=== PATIENT | male | born 1935 | race Caucasian/White ===

== ENCOUNTER 2016-09-30 08:36 | Inpatient (IN) | payer MEDICARE ==
[2016-09-30 09:54] LABS: Hematocrit 43 % (42-52); Hemoglobin 14.5 g/dl (14.0-18.0); Mean Corpuscular HGB Conc 34 g/dl (31-36); Mean Corpuscular Hemoglobin 32 pg (27-31); Mean Corpuscular Volume 94 fL (80-94); Mean Platelet Volume 8 um3 (7.4-10.4); Red Blood Count 4.55 10^6/ul (4.0-5.4); Red Cell Distribution Width 13 % (10.5-15)
[2016-09-30 10:07] LABS: Albumin 3.4 g/dL (3.2-5.2); BUN/Creatinine Ratio 9.8 (8-20); Calcium 8.9 mg/dL (8.6-10.3); EGFR African American 101.5 (>60); Globulin 3.9 g/dL (2-4); Potassium 4.2 mmol/L (3.5-5.0); Total Bilirubin 0.8 mg/dL (0.2-1.0); Total Protein 7.3 g/dL (6.4-8.9)
[2016-09-30 10:11] LABS: Troponin I 0.07 ng/mL (<0.04)
--- NOTE | 2016-09-30 10:11 | RAD ---
HISTORY: Cough COMPARISONS: September 09, 2016 VIEWS: 2: Frontal dual-energy and lateral views of the chest. FINDINGS: CARDIOMEDIASTINAL SILHOUETTE: The cardiomediastinal silhouette is normal. LOVE: The love are normal. PLEURA: There is moderate right pleural effusion. LUNG PARENCHYMA: There is patchy alveolar opacification of the right lung base. 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 ABDOMEN: The upper abdomen is clear. There is no subphrenic gas. BONES AND SOFT TISSUES: No bone or soft tissue abnormalities are noted. OTHER: None. IMPRESSION: INTERVAL DEVELOPMENT OF MODERATE-SIZED RIGHT PLEURAL EFFUSION WITH ASSOCIATED RIGHT BASILAR ATELECTASIS VERSUS CONSOLIDATION
[2016-09-30 10:32] LABS: Urine Bilirubin Negative (Negative); Urine Glucose Negative (Negative); Urine Nitrite Negative (Negative)
[2016-09-30] MEDS ORDERED: Albuterol 2.5 MG/3 ML NEB.SOL* (0.083%) INH ONE (11:13)
[2016-09-30] MEDS ORDERED: methylPREDNISolone 125 MG* 2 ML VIAL IM ONE (11:13)
[2016-09-30] MEDS ORDERED: Azithromycin IV* 500 MG ADVAN VIAL IVPB ONE (11:13)
[2016-09-30] MEDS ORDERED: cefTRIAXone VIAL(*) 1,000 MG in NS 0.9% 50 ML* 50 ML IVPB ONE (11:13)
[2016-09-30] MEDS ORDERED: Aspirin TAB* 325 MG PO ONE (11:13)
[2016-09-30] MEDS ORDERED: Azithromycin IV(*) 500 MG in NS 0.9% 250 ML* 250 ML IVPB ONE (11:13)
[2016-09-30] MEDS ORDERED: NS 0.9% 250 ML* 250 ML ONE (11:39)
[2016-09-30] MEDS ORDERED: methylPREDNISolone 125 MG* 2 ML VIAL IV ONE (11:47)
[2016-09-30] MEDS ORDERED: Acetaminophen TAB* 325 MG PO PRN (12:16)
[2016-09-30] MEDS ORDERED: Ondansetron INJ* 2 MG/ML VIAL IV PRN (12:16)
[2016-09-30] MEDS ORDERED: Albuterol 2.5 MG/3 ML NEB.SOL* (0.083%) INH PRN (12:16)
[2016-09-30] MEDS ORDERED: NS 0.9% 1000 ML* 1,000 ML IV SCH (12:45)
[2016-09-30] MEDS ORDERED: Albuterol/Ipratropium NEB.SOL* Albuterol 2.5 MG/Ipratropium 0.5 MG 3 ML INH SCH (13:00)
[2016-09-30] MEDS ORDERED: Iohexol 350* (CONTRAST) 500 ML MDV IV ONE (13:32)
--- NOTE | 2016-09-30 13:37 | RAD ---
INDICATION: Right pleural effusion assess for possible thoracentesis. COMPARISON: Comparison is made with a prior chest x-ray study from September 30, 2016. TECHNIQUE: Multiple real-time images of the chest were obtained. FINDINGS: There is a small a moderate size right pleural effusion present. This appears to be a simple effusion. A spot was marked on the patient's posterior chest wall for a thoracentesis to be performed later today. IMPRESSION: SMALL A MODERATE SIZE RIGHT PLEURAL EFFUSION, SITE MARKED FOR THORACENTESIS.
--- NOTE | 2016-09-30 14:00 | ED ---
IPasquale,Aditi, scribed for Andrea Andersen MD on 09/30/16 at 1114 . Shortness of Breath - HPI Summary HPI Summary: This 81 y/o male presents to ED for persistent dyspnea that is worse today. Pt denies any BLE edema, recent weight gain, but does report productive cough with clear sputum and chest tightness that is located on right lateral right and worse with cough. No fever. Positive for chills and diaphoresis. Pt has had URI since 2015. Pt was seen by doctor at 09/09/2016 and was dx with PNA. Pt was sent home unspecified abx, but continues to have gradually worsening general weakness and SOB that is worsened by movement or exertion. Pt is currently living with son. PMHx includes thyroid dz, but does not include HTN , HLD. Per EMR, PMHx also includes bladder CA and basal cell CA on right eyelid s/p removal. - History of Current Complaint Chief Complaint: EDShortnessOfBreath Time Seen by Provider: 09/30/16 09:44 Hx Obtained From: Patient, Medical Records Onset/Duration: Lasting Weeks, Still Present Timing: Constant Current Severity: Moderate Dyspnea At: Exertion Aggrevating Factors: Movement Associated Signs & Symptoms: Cough (Productive) - clear sputum, Chest Pain w/ Cough, Chills, Diaphoresis - Allergy/Home Medications Allergies/Adverse Reactions: Allergies Allergy/AdvReac Type Severity Reaction Status Date / Time No Known Allergies Allergy Verified 09/30/16 08:41 Home Medications: Home Medications Albuterol 2.5MG/3ML (0.083%)* [Ventolin 2.5 MG/3 ML NEB.BEN*] 2.5 mg INH TID PRN 09/30/16 [History Confirmed 09/30/16] Levothyroxine TAB* [Synthroid TAB*] 50 mcg PO EVERY OTHER DAY 09/30/16 [History Confirmed 09/30/16] PMH/Surg Hx/FS Hx/Imm Hx Endocrine/Hematology History: Denies: Hx Diabetes Cardiovascular History: Denies: Hx Hypertension, Hx Pacemaker/ICD Respiratory History: Reports: Hx Chronic Obstructive Pulmonary Disease (COPD) - MILD Sensory History: Denies: Hx Hearing Aid Psychiatric History: Denies: Hx Panic Disorder - Cancer History Cancer Type, Location and Year: BLADDER CA 2007. BASAL CELL CA Hx Chemotherapy: No Hx Radiation Therapy: No - Surgical History Surgery Procedure, Year, and Place: APPENDIX. BLADDER CA 2008. CATARACTS. BASAL CELL CA REMOVED FROM RT EYE LID - Immunization History Date of Tetanus Vaccine: up to date Date of Influenza Vaccine: up to date Infectious Disease History: Yes Infectious Disease History: Denies: Traveled Outside the [place] in Last 30 Days - Family History Known Family History: Negative: Cardiac Disease, Hypertension, Diabetes - Social History Alcohol Use: Occasionally Substance Use Type: Reports: None Hx Tobacco Use: Yes Smoking Status (MU): Former Smoker Review of Systems Positive: Chills, Skin Diaphoresis. Negative: Fever Negative: Erythema Negative: Sore Throat Positive: Chest Pain - related to cough. located on right lateral chest Positive: Shortness Of Breath, Cough - productive with clear sputum Negative: Abdominal Pain, Vomiting, Nausea Negative: dysuria Negative: Myalgia, Edema Neurological: Other - negative dizziness Positive: Weakness - general weakness All Other Systems Reviewed And Are Negative: Yes Physical Exam - Summary Physical Exam Summary: Constitutional: Well-developed, Well-nourished, Alert. (-) Distressed Skin: Warm, Dry HENT: Normocephalic; Atraumatic Eyes: Conjunctiva normal Neck: Musculoskeletal ROM normal neck. (-) JVD, (-) Stridor, (-) Tracheal deviation Cardio: Rhythm regular, rate normal, Heart sounds normal; Intact distal pulses; The pedal pulses are 2+ and symmetric. Radial pulses are 2+ and symmetric. (-) Murmur Pulmonary/Chest wall: Effort normal. (-) Respiratory distress, (-) Wheezes, (+) Rales on right base Abd: Soft, (-) Tenderness, (-) Distension, (-) Guarding, (-) Rebound Musculoskeletal: (-) Edema Lymph: (-) Cervical adenopathy Neuro: Alert, Oriented x3 Psych: Mood and affect Normal Triage Information Reviewed: Yes Vital Signs On Initial Exam: Initial Vitals Temp Pulse Resp BP Pulse Ox 97.5 F 96 16 115/70 92 09/30/16 08:41 09/30/16 08:41 09/30/16 08:41 09/30/16 08:41 09/30/16 08:41 Vital Signs Reviewed: Yes Diagnostics - Vital Signs Vital Signs Temp Pulse Resp BP Pulse Ox 09/30/16 10:31 93 09/30/16 09:18 99.6 F 84 16 113/61 96 09/30/16 08:41 97.5 F 96 16 115/70 92 - Laboratory Lab Results: Lab Results 09/30/16 09/30/16 09/30/16 Range/Units 09:15 09:15 09:15 WBC 8.0 (3.5-10.8) 10^3/ul RBC 4.55 (4.0-5.4) 10^6/ul Hgb 14.5 (14.0-18.0) g/dl Hct 43 (42-52) % MCV 94 (80-94) fL MCH 32 H (27-31) pg MCHC 34 (31-36) g/dl RDW 13 (10.5-15) % Plt Count 258 (150-450) 10^3/ul MPV 8 (7.4-10.4) um3 Neut % (Auto) 72.8 (38-83) % Lymph % (Auto) 16.3 L (25-47) % Pope % (Auto) 9.1 H (1-9) % Eos % (Auto) 1.4 (0-6) % Baso % (Auto) 0.4 (0-2) % Absolute Neuts (auto) 5.8 (1.5-7.7) 10^3/ul Absolute Lymphs (auto) 1.3 (1.0-4.8) 10^3/ul Absolute Monos (auto) 0.7 (0-0.8) 10^3/ul Absolute Eos (auto) 0.1 (0-0.6) 10^3/ul Absolute Basos (auto) 0 (0-0.2) 10^3/ul Absolute Nucleated RBC 0 10^3/ul Nucleated RBC % 0 INR (Anticoag Therapy) 1.07 (0.89-1.11) APTT 33.3 (26.0-36.3) seconds Sodium 128 L (133-145) mmol/L Potassium 4.2 (3.5-5.0) mmol/L Chloride 97 L (101-111) mmol/L Carbon Dioxide 24 (22-32) mmol/L Anion Gap 7 (2-11) mmol/L BUN 9 (6-24) mg/dL Creatinine 0.92 (0.67-1.17) mg/dL Est GFR ( Amer) 101.5 (>60) Est GFR (Non-Af Amer) 79.0 (>60) BUN/Creatinine Ratio 9.8 (8-20) Glucose 100 (70-100) mg/dL Lactic Acid (0.5-2.0) mmol/L Calcium 8.9 (8.6-10.3) mg/dL Total Bilirubin 0.80 (0.2-1.0) mg/dL AST 17 (13-39) U/L ALT 16 (7-52) U/L Alkaline Phosphatase 59 (34-104) U/L Troponin I 0.07 H* (<0.04) ng/mL Total Protein 7.3 (6.4-8.9) g/dL Albumin 3.4 (3.2-5.2) g/dL Globulin 3.9 (2-4) g/dL Albumin/Globulin Ratio 0.9 L (1-3) Urine Color Urine Appearance Urine pH (5-9) Ur Specific Barbeau (1.010-1.030) Urine Protein (Negative) Urine Ketones (Negative) Urine Blood (Negative) Urine Nitrate (Negative) Urine Bilirubin (Negative) Urine Urobilinogen (Negative) Ur Leukocyte Esterase (Negative) Urine Glucose (Negative) 09/30/16 09/30/16 Range/Units 09:15 10:20 WBC (3.5-10.8) 10^3/ul RBC (4.0-5.4) 10^6/ul Hgb (14.0-18.0) g/dl Hct (42-52) % MCV (80-94) fL MCH (27-31) pg MCHC (31-36) g/dl RDW (10.5-15) % Plt Count (150-450) 10^3/ul MPV (7.4-10.4) um3 Neut % (Auto) (38-83) % Lymph % (Auto) (25-47) % Pope % (Auto) (1-9) % Eos % (Auto) (0-6) % Baso % (Auto) (0-2) % Absolute Neuts (auto) (1.5-7.7) 10^3/ul Absolute Lymphs (auto) (1.0-4.8) 10^3/ul Absolute Monos (auto) (0-0.8) 10^3/ul Absolute Eos (auto) (0-0.6) 10^3/ul Absolute Basos (auto) (0-0.2) 10^3/ul Absolute Nucleated RBC 10^3/ul Nucleated RBC % INR (Anticoag Therapy) (0.89-1.11) APTT (26.0-36.3) seconds Sodium (133-145) mmol/L Potassium (3.5-5.0) mmol/L Chloride (101-111) mmol/L Carbon Dioxide (22-32) mmol/L Anion Gap (2-11) mmol/L BUN (6-24) mg/dL Creatinine (0.67-1.17) mg/dL Est GFR ( Amer) (>60) Est GFR (Non-Af Amer) (>60) BUN/Creatinine Ratio (8-20) Glucose (70-100) mg/dL Lactic Acid 0.8 (0.5-2.0) mmol/L Calcium (8.6-10.3) mg/dL Total Bilirubin (0.2-1.0) mg/dL AST (13-39) U/L ALT (7-52) U/L Alkaline Phosphatase (34-104) U/L Troponin I (<0.04) ng/mL Total Protein (6.4-8.9) g/dL Albumin (3.2-5.2) g/dL Globulin (2-4) g/dL Albumin/Globulin Ratio (1-3) Urine Color Sylvia Urine Appearance Cloudy Urine pH 5.0 (5-9) Ur Specific Barbeau 1.021 (1.010-1.030) Urine Protein Negative (Negative) Urine Ketones Trace H (Negative) Urine Blood Negative (Negative) Urine Nitrate Negative (Negative) Urine Bilirubin Negative (Negative) Urine Urobilinogen Negative (Negative) Ur Leukocyte Esterase Negative (Negative) Urine Glucose Negative (Negative) Result Diagrams: 09/30/16 09:15 09/30/16 09:15 Lab Statement: Any lab studies that have been ordered have been reviewed, and results considered in the medical decision making process. - Radiology CXR Xray Interpretation: Positive (See Comments) - INTERVAL DEVELOPMENT OF MODERATE- SIZED RIGHT PLEURAL EFFUSION WITH ASSOCIATED RIGHT BASILAR ATELECTASIS VERSUS CONSOLIDATION Radiology Interpretation Completed By: Radiologist - EKG 0928 Cardiac Rate: NL - 86 bpm EKG Rhythm: Sinus Rhythm Course/Dx - Course Assessment/Plan: This 81 y/o male presents with persistent dyspnea that is worse today. SOB is exertional and worse with movement. Pt reports persistent and gradually worsening URI and dx of PNA on 09/09/2016 that is persistent in spite of unspecified abx treatment. Upon examination, pt is noted with right basilar rales. CXR indicates right sided pleural effusion with right basilar atelectasis vs consolidation. Trop of 0.07 is noted in blood work. Plan of care is discussed with Dr. English, who accepts the admission of the pt. - Diagnoses Provider Diagnoses: Community acquired pneumonia, Elevated troponin, Pleural effusion - Physician Notifications Discussed Care of Patient With: Dr. English (Hospitalist) at 1130 AM Time Discussed With Above Provider: 11:30 Instructed by Provider To: Admit As Inpatient Discharge - Discharge Plan Condition: Stable Disposition: ADMITTED TO [facility] Referrals: Bear Mckeon MD [Primary Care Provider] - The documentation as recorded by the Pasquale sneed Soohyun accurately reflects the service I personally performed and the decisions made by , Andrea Andersen MD.
[2016-09-30 14:14] LABS: Body Fluid WBC 2251 /mcL
[2016-09-30 14:17] LABS: Body Fluid Appearance Cloudy
[2016-09-30 14:19] LABS: Body Fluid Total Cells Counted 100
--- NOTE | 2016-09-30 14:55 | RAD ---
INDICATION: Right pleural effusion, cough. COMPARISON: Comparison is made with a prior chest x-ray study of the same date. TECHNIQUE: A CT angiogram of the chest was performed with intravenous following intravenous injection of 72 ml of Omnipaque 350 nonionic contrast. Contiguous axial sections were obtained from the lung apices through the lung bases. Images were reconstructed in the coronal and sagittal planes. FINDINGS: There is relatively homogeneous opacification of the pulmonary arteries. No intraluminal filling defect or pulmonary embolism is seen. The heart is within normal limits in size. No pericardial effusion is present. The thoracic aorta is normal in caliber and demonstrates homogeneous contrast opacification. No significant enlarged mediastinal or hilar lymph nodes are seen. There is moderate centrilobular emphysematous change which is most prominent in the upper lobes. There is a small right pleural effusion. No pneumothorax is seen. There is a small infiltrate present anterior at the right lung base and also in the right lower lobe. There is a cystic lesion present at the anterior right lung base likely within the right middle lobe measuring 2.1 x 3.2 x 2.0 cm in size. There is also a second nodular cystic lesion present within the inferior portion of the right major fissure measuring 0.8 cm in size. There is and anterior diaphragmatic hernia containing mesenteric fat and the hepatic flexure of the colon. No bowel wall thickening or dilatation is present. Note is made of hypodense lesions in the posterior segment of the right hepatic lobe and medial segment of the left hepatic lobe. These measure up to 2.8 cm in size and likely represent cysts. There is a [id number] dorsal scoliosis convex toward the right side. No significant focal osseous abnormality is seen. IMPRESSION: 1. NO EVIDENCE FOR PULMONARY EMBOLISM. 2. SMALL RIGHT PLEURAL EFFUSION. 3. SMALL RIGHT MIDDLE LOBE AND LOWER LOBE INFILTRATES. 4. HYPODENSE CYSTIC LESION PRESENT IN THE REGION OF THE RIGHT MIDDLE LOBE POSSIBLY REPRESENTING LOCULATED FLUID LESS LIKELY A PULMONARY ABSCESS. RECOMMEND FOLLOW-UP STUDIES TO DEMONSTRATE RESOLUTION 5. SECOND SMALLER LESION IN THE RIGHT MAJOR FISSURE LIKELY REPRESENTING LOCULATED FLUID. 5. RIGHT-SIDED ANTERIOR DIAPHRAGMATIC HERNIA NOTED.
[2016-09-30] MEDS: Mometasone/Formoter 200/5 MDI INH SCH ×2 (14:58→20:25)
--- NOTE | 2016-09-30 16:01 | ECHO ---
Patient: CESAR KOO [facility] Rec#: [id number] : 1935 Date: 09/30/2016 Age: 81y Height: 180.34 cm / 71.0 in Weight: 8.16 kg / 18.0 lbs Sex: M BSA: 0.76 Room#: -10 Admit Date#: 09/30/2016 Type: Inpatient Referring: Ziggy Oconnor NP Reading: Roland Watson MD Rapid Transit Operator: Gerard Akins RDCS Transthoracic Echocardiogram Indication: Elevated,Troponin BP: 116/65 HR: 81 Rhythm: NSR Findings History: Copd,murmur,pvd,abnormal ekg Technical Comments: The study quality is good. Completed 1400 Left Ventricle: The left ventricular chamber size is normal. Global left ventricular wall motion and contractility are within normal limits. There is normal left ventricular systolic function. The estimated ejection fraction is 55-60%. Abnormal left ventricular diastolic filling is observed, consistent with impaired relaxation. The absence of left atrial enlargement suggests this finding may not be of clinical significance. Left Atrium: The left atrial chamber size is normal. Right Ventricle: The right ventricular cavity size is normal. The right ventricular global systolic function is normal. Right Atrium: The right atrial cavity size is normal. Aortic Valve: The aortic valve is trileaflet. There is a trace of aortic regurgitation. There is no evidence of aortic stenosis. Mitral Valve: The mitral valve leaflets appear normal. There is mitral annular calcification. There is no evidence of mitral regurgitation. There is no evidence of mitral stenosis. Tricuspid Valve: The tricuspid valve appears normal in structure and function. There is no evidence of tricuspid valve regurgitation. No pulmonary hypertension is noted. Pulmonic Valve: The pulmonic valve structure is not well visualized. Pericardium: There is no pericardial effusion. A pericardial fat pad is visualized. No pleural effusion is present. Aorta: There is no dilatation of the ascending aorta. The aortic arch is not well visualized. There is no dilation of the aortic root. Pulmonary Artery: The main pulmonary artery is not well visualized. Venous: The inferior vena cava appears normal in size. There is a greater than 50% respiratory change in the inferior vena cava dimension. Conclusions There is normal left ventricular systolic function. The estimated ejection fraction is 55-60%. Abnormal left ventricular diastolic filling is observed, consistent with impaired relaxation. The absence of left atrial enlargement suggests this finding may not be of clinical significance. There is a trace of aortic regurgitation. Measurements Name Value Normal Range RVIDd (AP) 2D 2.2 cm (0.9 - 2.6) RVDdMajor (2D) 3.1 cm (2.2 - 4.4) RAd ISD 4CH 5 cm (3.4 - 4.9) RA (A4C)W 3.7 cm (2.9 - 4.6) IVSd (2D) 1.1 cm (0.6 - 1) LVPWd (2D) 0.9 cm (0.6 - 1) LVIDd (2D) 5.3 cm (3.6 - 5.4) LVIDs (2D) 3.5 cm - LV FS (2D) 34 % (25 - 45) Aortic Annulus 2.4 cm (1.4 - 2.6) Ao root diameter (2D) 3.4 cm (2.1 - 3.5) Ascending Ao 3.4 cm (2.1 - 3.4) Aortic arch 2.1 cm (1.8 - 3.4) LA dimension (AP) 2D 4 cm (2.3 - 3.8) LAd ISD 4CH 4.2 cm (2.9 - 5.3) LA ISD 4CH W 2.8 cm (2.5 - 4.5) Name Value Normal Range LA ESV SP 4CH (A/L) 16 ml - LA ESV SP 2CH (A/L) 27 ml - LA ESV BP (A/L) 20 ml - LA ESV BP (A/L) index 27.44 ml/m2 - LA ESV SP 4CH (MOD) 16 ml - LA ESV SP 2CH (MOD) 24 ml - Name Value Normal Range MV E-wave Vmax 0.4 m/sec - MV deceleration time 79 msec - MV A-wave Vmax 0.07 m/sec - MV E:A ratio 0.56 ratio - LV septal e' Vmax 0.8 m/sec - LV lateral e' Vmax 0.57 m/sec - Name Value Normal Range AV Vmax 1.1 m/sec - LVOT diameter 2.1 cm - Name Value Normal Range IVC diameter 1.3 cm - Name Value Normal Range PV Vmax 1.2 m/sec -
[2016-09-30 17:51] LABS: EGFR African American 114.4 (>60); EGFR Non-African American 88.9 (>60); Potassium 4.4 mmol/L (3.5-5.0)
[2016-09-30] MEDS: Heparin VIAL(*) 5000 UNITS/ML VIAL (FIVE THOUSAND) SUBCUT SCH ×2 (17:59→22:17)
--- NOTE | 2016-09-30 18:29 | HP ---
HISTORY AND PHYSICAL: DATE OF ADMISSION: 09/30/16 PRIMARY CARE PROVIDER: Dr. Mckeon. ATTENDING PHYSICIAN WHILE IN THE HOSPITAL: Dr. José English * (report dictated by Shea Oconnor NP). CONSULTING GORE STITCHER: Dr. Major. CHIEF COMPLAINT: 1. Shortness of breath. 2. Weakness. HISTORY OF PRESENTING ILLNESS: Mr. Pineda is an 81-year-old male patient who carries a history of BPH, basal cell cancer, bladder cancer, COPD, peripheral vascular disease, and hypothyroidism. He comes into the ER today stating that over the last 8 weeks, he has had progressive worsening shortness of breath. It started around 8 weeks ago with a cough, he had upper respiratory symptoms. He has had sore throat, runny nose, it was not getting any better by the 09 of September. So, he went into his primary. He obtained a chest x-ray. He was diagnosed with pneumonia. He was put on antibiotics and steroids. He states that it did not really help. He still was feeling more short of breath, having some dyspnea on exertion. He noticed that with minimal exertion now, he becomes very short of breath. He was concerned, so he came to the ER today. It was noted that he was mildly hypoxic in the upper 80s. He states that it hurts to cough now. He gets pain in his chest when he does cough. He denies any chest pain at rest or with exertion. He states that he does really feel short of breath and he has been weak. He denies any weight loss. Denies any hemoptysis. He states the sputum has been a clear type sputum and he has been having chills but no fevers. He is evaluated in the ER today. It was found that he was requiring oxygen. He was on 2 L to keep his sats in the upper 90s. In addition to this, he was found to have new pleural effusion, so the hospitalist service was asked to evaluate for admission. PAST MEDICAL HISTORY: Significant for: 1. BPH. 2. Basal cell cancer. 3. Bladder CA. 4. PVD. 5. COPD. 6. Hypothyroidism. PAST SURGICAL HISTORY: 1. He has had an appendectomy. 2. Bladder surgery. HOME MEDICATIONS: Include: 1. Albuterol 2.5 mg inhaled t.i.d. as needed. 2. Synthroid 50 mcg p.o. every other day. ALLERGIES TO MEDICATIONS: Include no known allergies. FAMILY HISTORY: Mother at the age of 96. Father had a history of brain tumor. SOCIAL HISTORY: He is a former smoker. He smoked about a pack and a half a day for about 40 years, quit in 1987. Occasionally drinks alcohol. He lives with his son. Surrogate decision maker is his son. REVIEW OF SYSTEMS: There is no documented fever. Denied any significant weight change. There was no double vision. There is no ear discharge. There was rhinorrhea but none now. He does admit to dyspnea on exertion, no orthopnea. There is no chest pain at rest or with exertion, only when he coughs. He denies any nausea, vomiting. There is no abdominal pain. No dysuria, no frequency. No loss of consciousness. No pruritus and no skin ulcerations. Review of 14 systems completed. All others negative. PHYSICAL EXAMINATION GENERAL: At this time, Mr. Pineda is an 81-year-old male patient. He does not appear to be in any acute distress. He is sitting in the ER stretcher. VITAL SIGNS: Reveal pulse 84, respirations 16, O2 sat 96%, and temperature 99.6. HEENT: Head: Atraumatic and normocephalic. Eyes: EOMs are intact. Sclerae anicteric and not pale. Throat: Oral mucosa appears to be moist. No oropharyngeal erythema. NECK: Supple. LUNGS: Clear to auscultation bilaterally except in the right base is diminished. HEART: Sounds S1, S2. Regular rate and rhythm. No murmurs, rubs, or gallops. ABDOMEN: Soft, flat, nontender. Bowel sounds present. EXTREMITIES: Pulses 2+ throughout. Able to move all 4 extremities with 5/5 strength. NEUROLOGIC: He is awake, he is alert, and he is oriented x3. He had no gross focal deficits. SKIN: Intact. DIAGNOSTIC STUDIES/LAB DATA: Labs today revealed WBC of 8.0, RBC of 4.55, hemoglobin of 14.5, hematocrit of 43, and platelet count of 258. INR was 1.07, PTT was 33.3. Sodium was 128, potassium 4.2, chloride 97, bicarb 24, BUN 9, creatinine 0.92, glucose of 100, lactate 0.8, calcium 8.9. Total bili 0.8, AST 17, ALT 16, alk phos 59. Troponin 0.07. BNP 13. Albumin is 3.4. He had a urine that showed trace ketones only. He did have a chest x-ray obtained today which, when I reviewed, I do appreciate a right-sided pleural effusion, moderately sized. He did have a chest x-ray on the , which did appear to show pneumonia. The pleural effusion was not there. He did have an EKG obtained today as well which shows normal sinus rhythm. No ST elevations or T-wave inversions were noted. It was reviewed to the previous EKG, it is similar. The rate was 86 and he had a normal axis. Old medical records were reviewed. ASSESSMENT AND PLAN: Mr. Pineda is an 81-year-old male patient coming in today with progressive worsening shortness of breath over the last 8 weeks. On evaluation today, he was found to have new pleural effusion. He will be admitted under inpatient status for: 1. Pleural effusion. At this point, the etiology is unclear. It could be reactive secondary to the recent pneumonia, but I think at this point, he will obviously need thoracentesis. We are going to send this off for LDH, pH. We will send it off for cultures, Gram stain, and cell count as well to help us delineate and also we will send off for cytology, because of the history of smoking, I am going to get an CTA of the chest after the thoracentesis and empirically, I am going to put him on Rocephin and azithromycin in case this is an infection and we will continue to monitor. 2. Chronic obstructive pulmonary disease. He is not wheezing currently, but I am going to put him on anabel Walker for the time being, antibiotics. No steroids at this point because of no wheezing. We will continue to follow. 3. History of BPH. Continue current medications. 4. History of hypothyroidism. Continue his Synthroid. 5. History of bladder cancer and basal cell cancer. Follow with his primary. 6. History of peripheral vascular disease. I will defer to the primary but he should be on an aspirin which the patient states he is not taking. 7. DVT prophylaxis. I will go ahead and put him on a heparin subcu. 8. Indeterminate troponin. It is probably demand ischemia. When the patient came in, it was noted that his O2 saturations were in the 80s and he was requiring O2 which certainly may cause demand picture. I will get an echo, cycle his troponin. Should they continue to elevate, we will get a Cardiology consult. 9. Hyponatremia. I will give him some normal saline at 175 an hour and we will repeat his BMP later today to make sure his sodium has stabilized and I will send off urine lytes and urine osmol and serum osmol as well. 10. Code status. Full code. 11. Fluid, electrolytes, and nutrition. He is n.p.o. pending the thoracentesis. TIME SPENT: On this admission was 70 minutes, greater than half the time was spent [id number] with the patient, obtaining my history of physical; the other half time was spent going over the plan of care with the patient and implementing plan of care. I did discuss the plan of care with my attending, Dr. English; he is in agreement. SHEA OCONNOR NP CC: Dr. Major; Dr. Mckeon* [id number]/CPS #: [id number] MTDD
[2016-09-30] MEDS: Albuterol/Ipratropium NEB.SOL* Albuterol 2.5 MG/Ipratropium 0.5 MG 3 ML INH SCH (20:15)
--- NOTE | 2016-09-30 23:00 | CONS ---
PULMONARY CONSULTATION REPORT DATE OF CONSULTATION: 09/30/16 CONSULTATION REQUESTED BY: Ziggy Oconnor NP REASON FOR CONSULTATION: Evaluation of pleural effusion, shortness of breath. HISTORY OF PRESENT ILLNESS: The patient is an 81-year-old male with history of COPD who was brought into the ED for evaluation of worsening shortness of breath. The patient has been feeling unwell since Thanks. The patient's symptoms started with cold/URI symptoms. The patient has been having worsening shortness of breath with productive cough since that time. The patient was evaluated by his primary care physician as an outpatient and was prescribed antibiotics and prednisone. The patient's breathing did not improve and he decided to come to the ED for further evaluation. The patient was noted to be in significant distress upon evaluation in the ED. The patient was also noted to be hypoxemic. The patient was placed on O2 supplementation. Further investigation revealed right- sided pleural effusion. Pulmonary consultation was requested for evaluation of pleural effusion. The patient was seen and examined by me this afternoon. I have reviewed chest x-ray personally which showed moderate size right pleural effusion. Given significant dyspnea, emergent thoracentesis was performed at bedside in the ED. Ultrasound localization was utilized. Please refer to separately dictated thoracentesis report for further details. The patient had 1 L of pleural fluid removed while in the ED. The patient subsequently underwent CT scan of the chest, which was personally reviewed by me. The patient was started on broad-spectrum antibiotics and is admitted for evaluation of pneumonia and parapneumonic effusion. The patient denied fevers; however, reported chills and rigors at home. The patient denied weight loss; however, reported decreased appetite. The patient had history of cataract removal in the past and wears glasses. The patient denied abdominal pain, chest pain, palpitations, syncope, lower extremity edema , hemoptysis, bloody stools, constipation, diarrhea, hematuria, headaches, weakness, depression, bleeding disorder. PAST MEDICAL HISTORY: 1. COPD. 2. Hypothyroidism. 3. Mitral valve disorder. 4. Aortic valve disorder. 5. Prostate hypertrophy. 6. Basal cell cancer removed from right eye in 2005. 7. Bladder cancer in 2008. 8. Peripheral artery disease. 9. Peripheral vascular disease. 10. Heart murmur as a child. PAST SURGICAL HISTORY: 1. Bladder surgery, 2 tumors resected in 2008. 2. Appendectomy. 3. Cataract removal. MEDICATIONS AT HOME: 1. Levothyroxine 50 mcg every other day. 2. Albuterol inhalation as needed through nebulizer. ALLERGIES: No known drug allergies. FAMILY HISTORY: One brother with Venus Gehrig's disease, father with brain tumor, mother with natural causes at the age of 96 years. SOCIAL HISTORY: He is , retired residential service technician. Former smoker quitting in 1997, smoked 1-1/2 pack per day for 40 years. Occasionally consumes alcohol and denies drug abuse. REVIEW OF SYSTEMS: All 14 systems reviewed and as per HPI. PHYSICAL EXAM: General: The patient in mild distress prior to thoracentesis. Vital Signs: Temperature 97.3, pulse 78 beats per minute, respiratory rate 14, O2 sat 91% to 94% on 2 L, blood pressure 113/58. HEENT: Pupils equal, reactive to light, mucous membranes moist. Neck: Supple, trachea midline. Respiratory: No diminished air entry bilaterally, scattered wheeze present, decreased breath sounds in the right lung, and no accessory muscle use. Cardiovascular: S1, S2 present, regular. No rubs or murmur present. Abdomen: Soft, bowel sounds present, nontender, nondistended. Extremities: Normal range of motion. No edema. Neurologic: No focal deficits. Skin: No rash or bruises. Musculoskeletal: Normal range of motion. No fractures. DIAGNOSTIC STUDIES/LAB DATA: Laboratory workup, WBC count 8.0, hemoglobin 14.5 , hematocrit 43, platelet count 258. INR 1.07. Sodium 129, potassium 4.4, chloride 99, bicarb 24, BUN 10, creatinine 0.83, lactic acid 0.8, troponin 0.07, BNP 13. Pleural fluid analysis showed neutrophilia. Other tests were pending at this time. CT of the chest was personally reviewed by me, no evidence of pneumothorax after the pleural fluid was drained. No evidence for pulmonary embolism. Small residual right pleural effusion and possibly loculated effusion in the right middle lobe area and in the right major fissure. No significant mediastinal or hilar adenopathy. Right-sided anterior diaphragmatic hernia is noted. IMPRESSION/RECOMMENDATIONS: 81-year-old male with history of significant chronic obstructive pulmonary disease, admitted with worsening shortness of breath, found to have right-sided pleural effusion. Right-sided pleural effusion likely parapneumonic effusion after recent pneumonia. The patient had thoracentesis performed by me earlier today with drainage of 1 L of dark turbid fluid. Fluid was sent to the lab for microbiological and hematological testing. Postprocedure CT scan revealed no pneumothorax; however, with small loculated pockets of fluid on the right side. The patient's white count is not elevated at this time. Cultures from the pleural fluid are negative to date. No organisms isolated. No evidence of empyema at this time. I agree with current antibiotic regimen. No evidence of suspicious nodules or masses in the lungs. Would recommend getting echocardiogram given elevated troponins and concern with cardiac event. Thank you for allowing me to participate in the care of your patient. Will follow up with you. [id number]/[facility] #: [id number] MATILDE
[2016-10-01] MEDS: Albuterol/Ipratropium NEB.SOL* Albuterol 2.5 MG/Ipratropium 0.5 MG 3 ML INH SCH ×7 (00:03→23:20)
--- NOTE | 2016-10-01 02:12 | PRO ---
PROCEDURE REPORT: DATE OF PROCEDURE: 09/30/16 PROCEDURE PERFORMED: Ultrasound-guided thoracentesis on the right side. PREPROCEDURAL DIAGNOSIS: Moderate right pleural effusion to evaluate for parapneumonic effusion. ANESTHESIA: Local anesthesia with 1% lidocaine. DESCRIPTION OF PROCEDURE: Informed consent was obtained from the patient prior to the procedure after all the risks and benefits were thoroughly explained. The patient was sitting up leaning forward during the procedure. A [employer] 8 [place] thoracentesis catheter was utilized. Appropriate time-out was agreed on by attending staff prior to the procedure. Portable ultrasound was used to localize moderate amounts of right pleural effusions, free flowing. Strict aseptic precautions were utilized. Local anesthesia was achieved with 1% lidocaine intradermally subcutaneously and down into the pleural space taking precautions. A [employer] 8[place] thoracentesis catheter was inserted under manual suction after stab incision was made in the back to facilitate placement of the catheter. Needle was removed and catheter was placed in the pleural space. 1 L of dark fluid was aspirated under manual suction. The patient tolerated the procedure well. A postprocedure chest x-ray was performed and was verified. Specimen was sent to the lab for testing. [id number]/[facility] #: [id number] MTDD
[2016-10-01 04:52] LABS: Hematocrit 38 % (42-52); Hemoglobin 12.8 g/dl (14.0-18.0); Mean Corpuscular HGB Conc 34 g/dl (31-36); Mean Corpuscular Hemoglobin 32 pg (27-31); Mean Corpuscular Volume 93 fL (80-94); Mean Platelet Volume 8 um3 (7.4-10.4); Red Blood Count 4.03 10^6/ul (4.0-5.4); Red Cell Distribution Width 13 % (10.5-15); White Blood Count 7.5 10^3/ul (3.5-10.8)
[2016-10-01 05:03] LABS: BUN/Creatinine Ratio 15.1 (8-20); Calcium 8.8 mg/dL (8.6-10.3); EGFR African American 109.8 (>60); EGFR Non-African American 85.4 (>60); Potassium 4.4 mmol/L (3.5-5.0)
[2016-10-01] MEDS: Heparin VIAL(*) 5000 UNITS/ML VIAL (FIVE THOUSAND) SUBCUT SCH ×3 (05:13→21:32)
[2016-10-01] MEDS: Mometasone/Formoter 200/5 MDI INH SCH ×2 (08:14→23:20)
[2016-10-01] MEDS: Azithromycin IV(*) 500 MG in NS 0.9% 250 ML* 250 ML IVPB SCH (11:13)
[2016-10-01] MEDS: cefTRIAXone VIAL(*) 1,000 MG in NS 0.9% 50 ML* 50 ML IVPB SCH (13:08)
[2016-10-01 13:51] LABS: Body Fluid Sodium 131 mmol/L
[2016-10-01 13:58] LABS: Total Protein, BF 4.7 g/dL
[2016-10-01] MEDS: Benzonatate CAP* 100 MG PO PRN (20:16)
--- NOTE | 2016-10-01 21:50 | PN ---
Subjective Date of Service: 10/01/16 Interval History: feels better - but still not at baseline. "not ready to go home today" denies new s/sx Family History: Unchanged from Admission Social History: Unchanged from Admission Past Medical History: Unchanged from Admission Objective Active Medications: . Acetaminophen (Tylenol Tab*) 650 mg PO Q4H PRN PRN Reason: FEVER/PAIN Albuterol (Ventolin 2.5 Mg/3 Ml Neb.Leila*) 2.5 mg INH Q2H PRN PRN Reason: SOB/WHEEZING Albuterol/Ipratropium (Duoneb Neb.Leila*) 1 neb INH [id number] AWAKE [facility] Last Admin: 10/01/16 20:20 Dose: 1 neb Benzonatate (Tessalon Cap*) 100 mg PO BID PRN PRN Reason: COUGH Last Admin: 10/01/16 20:16 Dose: 100 mg Heparin Sodium (Porcine) (Heparin Vial(*)) 5,000 units SUBCUT Q8HR [facility] Last Admin: 10/01/16 21:32 Dose: 5,000 units Ceftriaxone Sodium 1,000 mg/ (Sodium Chloride) 50 mls @ 200 mls/hr IVPB Q24H [facility] Last Admin: 10/01/16 13:08 Dose: 200 mls/hr Azithromycin 500 mg/ Sodium (Chloride) 250 mls @ 250 mls/hr IVPB Q24H [facility] Last Admin: 10/01/16 11:13 Dose: 250 mls/hr Sodium Chloride (Ns 0.9% 1000 Ml*) 1,000 mls @ 75 mls/hr IV PER RATE [facility] Last Admin: 09/30/16 19:39 Dose: 75 mls/hr Levothyroxine Sodium (Synthroid Tab*) 50 mcg PO EVERY OTHER DAY [facility] Mometasone Furoate/Formoterol Fumar (Dulera 200/5 Mdi*) 2 puff INH BID [facility] Last Admin: 10/01/16 08:14 Dose: Not Given Ondansetron HCl (Zofran Inj*) 4 mg IV Q6H PRN PRN Reason: NAUSEA Vital Signs 09/30/16 10/01/16 10/01/16 23:54 03:26 07:00 Temperature 97.7 F 97.3 F Pulse Rate 78 88 Respiratory 16 20 18 Rate Blood Pressure 115/64 128/63 (mmHg) O2 Sat by Pulse 94 95 Oximetry 10/01/16 10/01/16 10/01/16 07:34 08:00 11:03 Temperature 99.3 F 97.3 F Pulse Rate 75 77 Respiratory 16 20 Rate Blood Pressure 111/68 118/58 (mmHg) O2 Sat by Pulse 95 95 94 Oximetry Appearance: elderly, frail Ears/Nose/Mouth/Throat: Clear Oropharnyx Neck: Trachea Midline Respiratory: Symmetrical Chest Expansion and Respiratory Effort, - - R rhonchorous sounds posteriorly Cardiovascular: NL Sounds; No Murmurs; No JVD Abdominal: NL Sounds; No Tenderness; No Distention Lymphatic: No Cervical Adenopathy Extremities: No Edema Skin: No Rash or Ulcers Lines/Tubes/Other Access: Clean, Dry and Intact Peripheral IV Nutrition: Taking PO's Result Diagrams: 10/01/16 04:43 10/01/16 04:43 Microbiology and Other Data: Microbiology 09/30/16 13:13 Sterile Body Fluid Culture - Preliminary Pleural Fluid No Growth Day 1 Sterile Body Fluid Culture - Preliminary No Growth Day 1 09/30/16 13:13 Gram Stain - Final Body Fluid - Pleura Assess/Plan/Problems-Billing . Assessment: 81 yo man with Likely Right Parapneumonic effusion and associated hypoxia and shortness of breath -- caused by Rright multilobar pneumonia. Continuing antibiotics Awaiting final fluid studies --> likely exudative from infection. Exudative Effusion / Parapneumonic 09/30/16 09/30/16 13:13 13:13 Fluid WBC 2251 Fluid RBC 3694 Fluid Tot Cell Count 100 Fluid Neutrophils 54 Fluid Total Protein 4.7 - Patient Problems (1) Parapneumonic effusion Current Visit: Yes Status: Acute Priority: High Code(s): J18.9 - PNEUMONIA , UNSPECIFIED ORGANISM; J91.8 - PLEURAL EFFUSION IN OTHER CONDITIONS CLASSIFIED ELSEWHERE Comment: - secondary to ipsilateral pneumonia - s/p thorocentesis with good lung re-expansion - follow. (2) Pneumonia Current Visit: Yes Status: Acute Priority: High Code(s): J18.9 - PNEUMONIA , UNSPECIFIED ORGANISM Comment: - IV antibiotics - Oxygen - Nebs (3) Hypothyroid Current Visit: Yes Status: Acute Priority: High Code(s): E03.9 - HYPOTHYROIDISM, UNSPECIFIED Comment: - continue outpatient synthroid. (4) Peripheral vascular disease Current Visit: Yes Status: Acute Code(s): I73.9 - PERIPHERAL VASCULAR DISEASE, UNSPECIFIED Comment: ASA (5) Hyponatremia Current Visit: Yes Status: Acute Priority: Medium Code(s): E87.1 - HYPO- OSMOLALITY AND HYPONATREMIA Comment: - could be SIADH from pulmonary process -- follow Na.
[2016-10-01] MEDS: GuaiFENesin DM* 5 ML UDC PO PRN (23:32)
[2016-10-02] MEDS: Albuterol/Ipratropium NEB.SOL* Albuterol 2.5 MG/Ipratropium 0.5 MG 3 ML INH SCH ×6 (03:37→22:45)
[2016-10-02] MEDS: Heparin VIAL(*) 5000 UNITS/ML VIAL (FIVE THOUSAND) SUBCUT SCH ×3 (05:21→21:25)
[2016-10-02 06:00] LABS: Hematocrit 35 % (42-52); Hemoglobin 11.9 g/dl (14.0-18.0); Mean Corpuscular HGB Conc 34 g/dl (31-36); Mean Corpuscular Hemoglobin 31 pg (27-31); Mean Corpuscular Volume 93 fL (80-94); Mean Platelet Volume 7 um3 (7.4-10.4); Red Blood Count 3.79 10^6/ul (4.0-5.4); Red Cell Distribution Width 13 % (10.5-15); White Blood Count 8.5 10^3/ul (3.5-10.8)
[2016-10-02 06:16] LABS: BUN/Creatinine Ratio 17.6 (8-20); EGFR African American 111.3 (>60); EGFR Non-African American 86.5 (>60)
[2016-10-02] MEDS: Levothyroxine TAB* 50 MCG TAB PO SCH (07:14)
[2016-10-02] MEDS: Mometasone/Formoter 200/5 MDI INH SCH ×2 (07:23→22:44)
--- NOTE | 2016-10-02 07:32 | RAD ---
INDICATION: Shortness of breath. COMPARISON: Similar chest x-ray as well as CTA of the chest dated September 30, 2016 TECHNIQUE: PA and lateral views of the chest were obtained. FINDINGS: There is heterogeneous density overlying the right lung base is similar location as the previous chest x-ray but with improved aeration at the dependent and lateral most portions of the lung bases. Loops of bowel are seen overlying the medial lung base which correspond to either herniation of the right abdominal contents into the lower thorax or asymmetric anterior elevation of the diaphragm. The left lung is clear. Visualized bones are normal for the patient's age. There is no radiographic evidence of free air beneath the diaphragm IMPRESSION: IMPROVED AERATION OF THE RIGHT LUNG BASE RELATIVE TO THE PREVIOUS DAY CHEST X-RAY WITH APPEARANCE OF DIAPHRAGMATIC ELEVATION VERSUS HERNIATION DESCRIBED ABOVE.
[2016-10-02] MEDS: Benzonatate CAP* 100 MG PO PRN ×2 (10:24→21:19)
[2016-10-02] MEDS: GuaiFENesin DM* 5 ML UDC PO PRN ×2 (10:24→21:18)
[2016-10-02] MEDS: Azithromycin IV(*) 500 MG in NS 0.9% 250 ML* 250 ML IVPB SCH (12:01)
[2016-10-02] MEDS: cefTRIAXone VIAL(*) 1,000 MG in NS 0.9% 50 ML* 50 ML IVPB SCH (13:12)
--- NOTE | 2016-10-02 14:44 | PN ---
Subjective Date of Service: 10/02/16 Interval History: Pt states he is feeling poorly again. He states that his breathing was much better after the thoracentesis until yesterday afternoon when his breathing became difficult and he felt limited in what he was able to do comfortably. Additionally he states he now has a dry cough. Objective Active Medications: Acetaminophen (Tylenol Tab*) 650 mg PO Q4H PRN PRN Reason: FEVER/PAIN Albuterol (Ventolin 2.5 Mg/3 Ml Neb.Leila*) 2.5 mg INH Q2H PRN PRN Reason: SOB/WHEEZING Albuterol/Ipratropium (Duoneb Neb.Leila*) 1 neb INH [id number] AWAKE [facility] Last Admin: 10/02/16 11:43 Dose: 1 neb Benzonatate (Tessalon Cap*) 100 mg PO BID PRN PRN Reason: COUGH Last Admin: 10/02/16 10:24 Dose: 100 mg Guaifenesin/Dextromethorphan (Robitussin Dm*) 5 ml PO Q4H PRN PRN Reason: COUGH Last Admin: 10/02/16 10:24 Dose: 5 ml Heparin Sodium (Porcine) (Heparin Vial(*)) 5,000 units SUBCUT Q8HR [facility] Last Admin: 10/02/16 13:12 Dose: 5,000 units Ceftriaxone Sodium 1,000 mg/ (Sodium Chloride) 50 mls @ 200 mls/hr IVPB Q24H [facility] Last Admin: 10/02/16 13:12 Dose: 200 mls/hr Azithromycin 500 mg/ Sodium (Chloride) 250 mls @ 250 mls/hr IVPB Q24H [facility] Last Admin: 10/02/16 12:01 Dose: 250 mls/hr Sodium Chloride (Ns 0.9% 1000 Ml*) 1,000 mls @ 75 mls/hr IV PER RATE [facility] Last Admin: 09/30/16 19:39 Dose: 75 mls/hr Levothyroxine Sodium (Synthroid Tab*) 50 mcg PO EVERY OTHER DAY@0600 [facility] Last Admin: 10/02/16 07:14 Dose: 50 mcg Mometasone Furoate/Formoterol Fumar (Dulera 200/5 Mdi*) 2 puff INH BID [facility] Last Admin: 10/02/16 07:23 Dose: 2 puff Ondansetron HCl (Zofran Inj*) 4 mg IV Q6H PRN PRN Reason: NAUSEA Vital Signs 10/01/16 10/01/16 10/01/16 15:13 15:36 16:20 Temperature 97.3 F 98.1 F Pulse Rate 96 96 84 Respiratory 20 16 14 Rate Blood Pressure 117/57 105/51 (mmHg) O2 Sat by Pulse 94 93 94 Oximetry 10/01/16 10/01/16 10/01/16 19:51 19:58 20:00 Temperature 97.5 F Pulse Rate 92 86 Respiratory 16 16 20 Rate Blood Pressure 113/61 (mmHg) O2 Sat by Pulse 92 95 93 Oximetry 10/01/16 10/01/16 10/01/16 23:04 23:10 23:21 Temperature Pulse Rate 85 86 87 Respiratory 20 20 20 Rate Blood Pressure 120/57 (mmHg) O2 Sat by Pulse 94 93 97 Oximetry 10/02/16 10/02/16 10/02/16 00:00 00:34 03:37 Temperature 97.9 F 98.5 F Pulse Rate 98 93 Respiratory 20 20 Rate Blood Pressure 115/47 127/74 (mmHg) O2 Sat by Pulse 95 93 93 Oximetry 10/02/16 10/02/16 10/02/16 07:26 08:00 08:03 Temperature 97.8 F Pulse Rate 96 99 Respiratory 16 18 Rate Blood Pressure 109/54 (mmHg) O2 Sat by Pulse 94 92 Oximetry 10/02/16 10/02/16 11:24 11:44 Temperature 97.6 F Pulse Rate 97 91 Respiratory 22 16 Rate Blood Pressure 122/81 (mmHg) O2 Sat by Pulse 95 98 Oximetry Oxygen Devices in Use Now: Nasal Cannula - 3L-98% Appearance: Elderly male sitting on the edge of the bed, NAD Eyes: No Scleral Icterus Ears/Nose/Mouth/Throat: Mucous Membranes Moist Respiratory: Symmetrical Chest Expansion and Respiratory Effort, Clear to Auscultation - slightly diminished breath sounds at the R base Cardiovascular: NL Sounds; No Murmurs; No JVD, RRR Extremities: No Clubbing, Cyanosis Skin: No Rash or Ulcers, No Nodules or Sclerosis Neurological: Alert and Oriented x 3 Result Diagrams: 10/02/16 05:42 10/02/16 05:42 Additional Lab and Data: Lab Results 09/30/16 09/30/16 09/30/16 Range/Units 09:15 09:15 09:15 WBC 8.0 (3.5-10.8) 10^3/ul RBC 4.55 (4.0-5.4) 10^6/ul Hgb 14.5 (14.0-18.0) g/dl Hct 43 (42-52) % MCV 94 (80-94) fL MCH 32 H (27-31) pg MCHC 34 (31-36) g/dl RDW 13 (10.5-15) % Plt Count 258 (150-450) 10^3/ul MPV 8 (7.4-10.4) um3 Neut % (Auto) 72.8 (38-83) % Lymph % (Auto) 16.3 L (25-47) % Cross % (Auto) 9.1 H (1-9) % Eos % (Auto) 1.4 (0-6) % Baso % (Auto) 0.4 (0-2) % Absolute Neuts (auto) 5.8 (1.5-7.7) 10^3/ul Absolute Lymphs (auto) 1.3 (1.0-4.8) 10^3/ul Absolute Monos (auto) 0.7 (0-0.8) 10^3/ul Absolute Eos (auto) 0.1 (0-0.6) 10^3/ul Absolute Basos (auto) 0 (0-0.2) 10^3/ul Absolute Nucleated RBC 0 10^3/ul Nucleated RBC % 0 INR (Anticoag Therapy) 1.07 (0.89-1.11) APTT 33.3 (26.0-36.3) seconds Sodium 128 L (133-145) mmol/L Potassium 4.2 (3.5-5.0) mmol/L Chloride 97 L (101-111) mmol/L Carbon Dioxide 24 (22-32) mmol/L Anion Gap 7 (2-11) mmol/L BUN 9 (6-24) mg/dL Creatinine 0.92 (0.67-1.17) mg/dL Est GFR ( Amer) 101.5 (>60) Est GFR (Non-Af Amer) 79.0 (>60) BUN/Creatinine Ratio 9.8 (8-20) Glucose 100 (70-100) mg/dL Lactic Acid (0.5-2.0) mmol/L Calcium 8.9 (8.6-10.3) mg/dL Total Bilirubin 0.80 (0.2-1.0) mg/dL AST 17 (13-39) U/L ALT 16 (7-52) U/L Alkaline Phosphatase 59 (34-104) U/L Troponin I 0.07 H* (<0.04) ng/mL Total Protein 7.3 (6.4-8.9) g/dL Albumin 3.4 (3.2-5.2) g/dL Globulin 3.9 (2-4) g/dL Albumin/Globulin Ratio 0.9 L (1-3) Urine Color Urine Appearance Urine pH (5-9) Ur Specific [place] (1.010-1.030) Urine Protein (Negative) Urine Ketones (Negative) Urine Blood (Negative) Urine Nitrate (Negative) Urine Bilirubin (Negative) Urine Urobilinogen (Negative) Ur Leukocyte Esterase (Negative) Urine Glucose (Negative) 09/30/16 09/30/16 Range/Units 09:15 10:20 WBC (3.5-10.8) 10^3/ul RBC (4.0-5.4) 10^6/ul Hgb (14.0-18.0) g/dl Hct (42-52) % MCV (80-94) fL MCH (27-31) pg MCHC (31-36) g/dl RDW (10.5-15) % Plt Count (150-450) 10^3/ul MPV (7.4-10.4) um3 Neut % (Auto) (38-83) % Lymph % (Auto) (25-47) % Cross % (Auto) (1-9) % Eos % (Auto) (0-6) % Baso % (Auto) (0-2) % Absolute Neuts (auto) (1.5-7.7) 10^3/ul Absolute Lymphs (auto) (1.0-4.8) 10^3/ul Absolute Monos (auto) (0-0.8) 10^3/ul Absolute Eos (auto) (0-0.6) 10^3/ul Absolute Basos (auto) (0-0.2) 10^3/ul Absolute Nucleated RBC 10^3/ul Nucleated RBC % INR (Anticoag Therapy) (0.89-1.11) APTT (26.0-36.3) seconds Sodium (133-145) mmol/L Potassium (3.5-5.0) mmol/L Chloride (101-111) mmol/L Carbon Dioxide (22-32) mmol/L Anion Gap (2-11) mmol/L BUN (6-24) mg/dL Creatinine (0.67-1.17) mg/dL Est GFR ( Amer) (>60) Est GFR (Non-Af Amer) (>60) BUN/Creatinine Ratio (8-20) Glucose (70-100) mg/dL Lactic Acid 0.8 (0.5-2.0) mmol/L Calcium (8.6-10.3) mg/dL Total Bilirubin (0.2-1.0) mg/dL AST (13-39) U/L ALT (7-52) U/L Alkaline Phosphatase (34-104) U/L Troponin I (<0.04) ng/mL Total Protein (6.4-8.9) g/dL Albumin (3.2-5.2) g/dL Globulin (2-4) g/dL Albumin/Globulin Ratio (1-3) Urine Color Sylvia Urine Appearance Cloudy Urine pH 5.0 (5-9) Ur Specific [place] 1.021 (1.010-1.030) Urine Protein Negative (Negative) Urine Ketones Trace H (Negative) Urine Blood Negative (Negative) Urine Nitrate Negative (Negative) Urine Bilirubin Negative (Negative) Urine Urobilinogen Negative (Negative) Ur Leukocyte Esterase Negative (Negative) Urine Glucose Negative (Negative) Microbiology and Other Data: Microbiology 09/30/16 13:13 Sterile Body Fluid Culture - Preliminary Pleural Fluid No Growth Day 1 Sterile Body Fluid Culture - Preliminary No Growth Day 1 09/30/16 13:13 Gram Stain - Final Body Fluid - Pleura Assess/Plan/Problems-Billing Mr Pineda is an 81 yo M who has a h/o COPD, BPH and hypothyroidism who presented to the ER with c/o SOB and was found to have a large R pleural effusion. - Patient Problems (1) Parapneumonic effusion Current Visit: Yes Status: Acute Code(s): J18.9 - PNEUMONIA, UNSPECIFIED ORGANISM; J91.8 - PLEURAL EFFUSION IN OTHER CONDITIONS CLASSIFIED ELSEWHERE SNOMED Code(s): 05880818 Comment: S/P thoracentesis on admission. Pt initially felt much better but now worse. CXR this AM shows a small effusion but I do not think this is causing his worsened SOB. The patient's effusion on admission was likely secondary to his recent pna treated as an outpatient. (2) Elevated troponin Current Visit: Yes Status: Acute Code(s): R79.89 - OTHER SPECIFIED ABNORMAL FINDINGS OF BLOOD CHEMISTRY SNOMED Code(s): 125046291 Comment: Likely secondary to demand ischemia from hypoxia. Echo did not reveal any wall motion abnormalities. Could consider outpatient stress test once pt has recovered from his current illness. (3) COPD (chronic obstructive pulmonary disease) Current Visit: Yes Status: Acute Code(s): J44.9 - CHRONIC OBSTRUCTIVE PULMONARY DISEASE, UNSPECIFIED SNOMED Code(s): 96401163 Comment: No signs of exacerbation (ie wheezing) but the patient is feeling more SOB today. I suspect his underlying COPD is contributing. Will ask for Dr. Major to follow up. ? low dose steroids. He appears to have a right diaphragmatic hernia but when I look at an old CXR from 2015 I suspect it was present at that time. (4) Hyponatremia Current Visit: Yes Status: Acute Code(s): E87.1 - HYPO-OSMOLALITY AND HYPONATREMIA SNOMED Code(s): 85573532 Comment: Resolved. (5) Hypothyroid Current Visit: Yes Status: Acute Code(s): E03.9 - HYPOTHYROIDISM, UNSPECIFIED SNOMED Code(s): 01489301 Comment: Continue current dose of synthroid. (6) DVT prophylaxis Current Visit: Yes Status: Acute Code(s): PZY4489 - SNOMED Code(s): 592160976 Comment: SQ heparin (7) Full code status Current Visit: Yes Status: Acute Code(s): Z78.9 - OTHER SPECIFIED HEALTH STATUS SNOMED Code(s): 012307478
--- NOTE | 2016-10-02 15:23 | PN ---
Progress Note - Progress Note Note: Pulm consult f/u note 10/02/16. Pt seen and examined bedside. Pt reproted feeling better yesterday and after thoracentesis however started having SOB this morning. Reports cough, unable to expectorate phleghm. Didn't have BM Active Medications Generic Name Dose Route Start Last Admin Trade Name Freq PRN Reason Stop Dose Admin Acetaminophen 650 mg 09/30/16 12:16 Tylenol Tab* PO Q4H PRN FEVER/PAIN Albuterol 2.5 mg 09/30/16 12:16 Ventolin 2.5 Mg/3 Ml Neb.Leila* INH Q2H PRN SOB/WHEEZING Albuterol/Ipratropium 1 neb 09/30/16 19:00 10/02/16 11:43 Duoneb Neb.Leila* INH 1 neb [id number] AWAKE AMBROSIO Administration Benzonatate 100 mg 10/01/16 20:09 10/02/16 10:24 Tessalon Cap* PO 100 mg BID PRN Administration COUGH Guaifenesin/Dextromethorphan 5 ml 10/01/16 23:05 10/02/16 10:24 Robitussin Dm* PO 5 ml Q4H PRN Administration COUGH Heparin Sodium (Porcine) 5,000 units 09/30/16 14:00 10/02/16 13:12 Heparin Vial(*) SUBCUT 5,000 units Q8HR AMBROSIO Administration Ceftriaxone Sodium 1,000 mg/ 50 mls @ 200 mls/hr 10/01/16 13:00 10/02/16 13: 12 Sodium Chloride IVPB 200 mls/hr Q24H AMBROSIO Administration Azithromycin 500 mg/ Sodium 250 mls @ 250 mls/hr 10/01/16 12:00 10/02/16 12: 01 Chloride IVPB 250 mls/hr Q24H AMBROSIO Administration Sodium Chloride 1,000 mls @ 75 mls/hr 09/30/16 12:45 09/30/16 19:39 Ns 0.9% 1000 Ml* IV 75 mls/hr PER RATE AMBROSIO Administration Levothyroxine Sodium 50 mcg 10/02/16 07:00 10/02/16 07:14 Synthroid Tab* PO 50 mcg EVERY OTHER DAY@0600 AMBR[facility]IO Administration Mometasone Furoate/Formoterol Fumar 2 puff 09/30/16 13:00 10/02/16 07:23 Dulera 200/5 Mdi* INH 2 puff BID AMBROSIO Administration Ondansetron HCl 4 mg 09/30/16 12:16 Zofran Inj* IV Q6H PRN NAUSEA Polyethylene Glycol/Electrolytes 17 gm 10/02/16 21:00 Miralax* PO 0800,2100 [facility] Vital Signs Temp Pulse Resp BP Pulse Ox 97.6 F 91 16 122/81 98 10/02/16 11:24 10/02/16 11:44 10/02/16 11:44 10/02/16 11:24 10/02/16 11:44 Gen:Pt in NAD HEENT: No Scleral Icterus, Mucous Membranes Moist Respiratory: Symmetrical Chest Expansion and Respiratory Effort, Clear to Auscultation, slightly diminished breath sounds at the Rt base Cardiovascular: NL Sounds; No Murmurs; No JVD, RRR Extremities: No Clubbing, Cyanosis Skin: No Rash or Ulcers, No Nodules or Sclerosis Neurological: Alert and Oriented x 3 Microbiology and Other Data: Microbiology 09/30/16 13:13 Sterile Body Fluid Culture - Preliminary Pleural Fluid No Growth Day 1 Sterile Body Fluid Culture - Preliminary No Growth Day 1 09/30/16 13:13 Gram Stain - Final Body Fluid - Pleura CXR: Improved aeration of rt lung with small effusion at base and loculated pocket in Rt mid lung. Elevated Rt elton diaphraghm, also seen on prior CXR I/R: Pt is 81 yo M with COPD, BPH and hypothyroidism who presented to the ER with c/o SOB and was found to have a large R pleural effusion. Parapneumonic effusion on rt side S/P thoracentesis and removal of 1L of dark fluid, exudate, cultures negative, cytology negative. Pt with worsening SOB today with no CXR changes. Pt with no BM since admission, with distended abd and given h/o unilateral diaphragmatic paresis and elavtaed Rt hemidiaphraghm as a result might be having decreased reserve resulting in hypoxia and SOB. Bowel regimen ordered. Will reassess tomorrow. Elevated troponin- Likely secondary to demand ischemia from hypoxia. Echo did not reveal any wall motion abnormalities. c/w bronchodilators for COPD, no signs of exacerbation c/w O2 supplementation D/w Dr Beach
[2016-10-02] MEDS: Polyethylene Glycol 3350* 17 GM PACKET PO SCH (21:20)
[2016-10-02 22:07] LABS: BF PH 7.8
[2016-10-03] MEDS: Albuterol/Ipratropium NEB.SOL* Albuterol 2.5 MG/Ipratropium 0.5 MG 3 ML INH SCH ×3 (03:06→11:27)
[2016-10-03] MEDS: Heparin VIAL(*) 5000 UNITS/ML VIAL (FIVE THOUSAND) SUBCUT SCH ×3 (06:24→21:21)
[2016-10-03] MEDS: Mometasone/Formoter 200/5 MDI INH SCH ×2 (08:58→21:31)
[2016-10-03] MEDS: Polyethylene Glycol 3350* 17 GM PACKET PO SCH ×2 (09:50→21:12)
[2016-10-03] MEDS: GuaiFENesin DM* 5 ML UDC PO PRN (09:57)
[2016-10-03] MEDS: Benzonatate CAP* 100 MG PO PRN (09:57)
[2016-10-03] MEDS: Azithromycin IV(*) 500 MG in NS 0.9% 250 ML* 250 ML IVPB SCH (12:04)
[2016-10-03] MEDS ORDERED: Albuterol/Ipratropium NEB.SOL* Albuterol 2.5 MG/Ipratropium 0.5 MG 3 ML INH PRN (13:18)
[2016-10-03] MEDS: cefTRIAXone VIAL(*) 1,000 MG in NS 0.9% 50 ML* 50 ML IVPB SCH ×3 (14:52→18:18)
--- NOTE | 2016-10-03 15:01 | PN ---
Subjective Date of Service: 10/03/16 Interval History: Pt is feeling no better today. He states he is still very SOB and feels like he has no energy to even walk to the bathroom. He is also coughing but not brining up any sputum. He has pain in his chest when coughing. Objective Active Medications: Acetaminophen (Tylenol Tab*) 650 mg PO Q4H PRN PRN Reason: FEVER/PAIN Albuterol/Ipratropium (Duoneb Neb.Leila*) 1 neb INH Q6H PRN PRN Reason: SOB/WHEEZING Benzonatate (Tessalon Cap*) 100 mg PO BID PRN PRN Reason: COUGH Last Admin: 10/03/16 09:57 Dose: 100 mg Guaifenesin/Dextromethorphan (Robitussin Dm*) 5 ml PO Q4H PRN PRN Reason: COUGH Last Admin: 10/03/16 09:57 Dose: 5 ml Heparin Sodium (Porcine) (Heparin Vial(*)) 5,000 units SUBCUT Q8HR [facility] Last Admin: 10/03/16 14:54 Dose: 5,000 units Levothyroxine Sodium (Synthroid Tab*) 50 mcg PO EVERY OTHER DAY@0600 [facility] Last Admin: 10/02/16 07:14 Dose: 50 mcg Mometasone Furoate/Formoterol Fumar (Dulera 200/5 Mdi*) 2 puff INH BID [facility] Last Admin: 10/03/16 08:58 Dose: 2 puff Ondansetron HCl (Zofran Inj*) 4 mg IV Q6H PRN PRN Reason: NAUSEA Polyethylene Glycol/Electrolytes (Miralax*) 17 gm PO 0800,2100 [facility] Last Admin: 10/03/16 09:50 Dose: Not Given Vital Signs 10/02/16 10/02/16 10/02/16 15:24 15:51 19:23 Temperature 97.9 F 98.1 F Pulse Rate 90 85 96 Respiratory 18 16 16 Rate Blood Pressure 118/69 126/71 (mmHg) O2 Sat by Pulse 94 100 93 Oximetry 10/02/16 10/02/16 10/03/16 20:00 23:51 00:00 Temperature 97.9 F Pulse Rate 97 108 Respiratory 20 20 Rate Blood Pressure 123/57 (mmHg) O2 Sat by Pulse 95 91 97 Oximetry 10/03/16 10/03/16 10/03/16 03:39 07:44 08:00 Temperature 98.5 F 98.3 F Pulse Rate 98 88 Respiratory 20 16 16 Rate Blood Pressure 115/48 133/65 (mmHg) O2 Sat by Pulse 90 92 Oximetry 10/03/16 10/03/16 09:01 11:28 Temperature Pulse Rate 98 91 Respiratory 16 16 Rate Blood Pressure (mmHg) O2 Sat by Pulse 94 93 Oximetry Oxygen Devices in Use Now: Nasal Cannula - 3L-93% Appearance: Elderly male sitting up in bed, NAD Eyes: No Scleral Icterus Ears/Nose/Mouth/Throat: Mucous Membranes Moist Respiratory: Symmetrical Chest Expansion and Respiratory Effort, Clear to Auscultation - occassional scattered wheeze Cardiovascular: NL Sounds; No Murmurs; No JVD, RRR, No Edema Abdominal: NL Sounds; No Tenderness; No Distention Extremities: No Clubbing, Cyanosis Skin: No Rash or Ulcers, No Nodules or Sclerosis Neurological: Alert and Oriented x 3 Result Diagrams: 10/02/16 05:42 10/02/16 05:42 Additional Lab and Data: Lab Results 09/30/16 09/30/16 09/30/16 Range/Units 09:15 09:15 09:15 WBC 8.0 (3.5-10.8) 10^3/ul RBC 4.55 (4.0-5.4) 10^6/ul Hgb 14.5 (14.0-18.0) g/dl Hct 43 (42-52) % MCV 94 (80-94) fL MCH 32 H (27-31) pg MCHC 34 (31-36) g/dl RDW 13 (10.5-15) % Plt Count 258 (150-450) 10^3/ul MPV 8 (7.4-10.4) um3 Neut % (Auto) 72.8 (38-83) % Lymph % (Auto) 16.3 L (25-47) % [place] % (Auto) 9.1 H (1-9) % Eos % (Auto) 1.4 (0-6) % Baso % (Auto) 0.4 (0-2) % Absolute Neuts (auto) 5.8 (1.5-7.7) 10^3/ul Absolute Lymphs (auto) 1.3 (1.0-4.8) 10^3/ul Absolute Monos (auto) 0.7 (0-0.8) 10^3/ul Absolute Eos (auto) 0.1 (0-0.6) 10^3/ul Absolute Basos (auto) 0 (0-0.2) 10^3/ul Absolute Nucleated RBC 0 10^3/ul Nucleated RBC % 0 INR (Anticoag Therapy) 1.07 (0.89-1.11) APTT 33.3 (26.0-36.3) seconds Sodium 128 L (133-145) mmol/L Potassium 4.2 (3.5-5.0) mmol/L Chloride 97 L (101-111) mmol/L Carbon Dioxide 24 (22-32) mmol/L Anion Gap 7 (2-11) mmol/L BUN 9 (6-24) mg/dL Creatinine 0.92 (0.67-1.17) mg/dL Est GFR ( Amer) 101.5 (>60) Est GFR (Non-Af Amer) 79.0 (>60) BUN/Creatinine Ratio 9.8 (8-20) Glucose 100 (70-100) mg/dL Lactic Acid (0.5-2.0) mmol/L Calcium 8.9 (8.6-10.3) mg/dL Total Bilirubin 0.80 (0.2-1.0) mg/dL AST 17 (13-39) U/L ALT 16 (7-52) U/L Alkaline Phosphatase 59 (34-104) U/L Troponin I 0.07 H* (<0.04) ng/mL Total Protein 7.3 (6.4-8.9) g/dL Albumin 3.4 (3.2-5.2) g/dL Globulin 3.9 (2-4) g/dL Albumin/Globulin Ratio 0.9 L (1-3) Urine Color Urine Appearance Urine pH (5-9) Ur Specific [place] (1.010-1.030) Urine Protein (Negative) Urine Ketones (Negative) Urine Blood (Negative) Urine Nitrate (Negative) Urine Bilirubin (Negative) Urine Urobilinogen (Negative) Ur Leukocyte Esterase (Negative) Urine Glucose (Negative) 09/30/16 09/30/16 Range/Units 09:15 10:20 WBC (3.5-10.8) 10^3/ul RBC (4.0-5.4) 10^6/ul Hgb (14.0-18.0) g/dl Hct (42-52) % MCV (80-94) fL MCH (27-31) pg MCHC (31-36) g/dl RDW (10.5-15) % Plt Count (150-450) 10^3/ul MPV (7.4-10.4) um3 Neut % (Auto) (38-83) % Lymph % (Auto) (25-47) % [place] % (Auto) (1-9) % Eos % (Auto) (0-6) % Baso % (Auto) (0-2) % Absolute Neuts (auto) (1.5-7.7) 10^3/ul Absolute Lymphs (auto) (1.0-4.8) 10^3/ul Absolute Monos (auto) (0-0.8) 10^3/ul Absolute Eos (auto) (0-0.6) 10^3/ul Absolute Basos (auto) (0-0.2) 10^3/ul Absolute Nucleated RBC 10^3/ul Nucleated RBC % INR (Anticoag Therapy) (0.89-1.11) APTT (26.0-36.3) seconds Sodium (133-145) mmol/L Potassium (3.5-5.0) mmol/L Chloride (101-111) mmol/L Carbon Dioxide (22-32) mmol/L Anion Gap (2-11) mmol/L BUN (6-24) mg/dL Creatinine (0.67-1.17) mg/dL Est GFR ( Amer) (>60) Est GFR (Non-Af Amer) (>60) BUN/Creatinine Ratio (8-20) Glucose (70-100) mg/dL Lactic Acid 0.8 (0.5-2.0) mmol/L Calcium (8.6-10.3) mg/dL Total Bilirubin (0.2-1.0) mg/dL AST (13-39) U/L ALT (7-52) U/L Alkaline Phosphatase (34-104) U/L Troponin I (<0.04) ng/mL Total Protein (6.4-8.9) g/dL Albumin (3.2-5.2) g/dL Globulin (2-4) g/dL Albumin/Globulin Ratio (1-3) Urine Color Sylvia Urine Appearance Cloudy Urine pH 5.0 (5-9) Ur Specific [place] 1.021 (1.010-1.030) Urine Protein Negative (Negative) Urine Ketones Trace H (Negative) Urine Blood Negative (Negative) Urine Nitrate Negative (Negative) Urine Bilirubin Negative (Negative) Urine Urobilinogen Negative (Negative) Ur Leukocyte Esterase Negative (Negative) Urine Glucose Negative (Negative) Microbiology and Other Data: Microbiology 09/30/16 13:13 Sterile Body Fluid Culture - Preliminary Pleural Fluid No Growth Day 1 Sterile Body Fluid Culture - Preliminary No Growth Day 1 09/30/16 13:13 Gram Stain - Final Body Fluid - Pleura Assess/Plan/Problems-Billing Mr Pineda is an 81 yo M who has a h/o COPD, BPH and hypothyroidism who presented to the ER with c/o SOB and was found to have a large R pleural effusion. - Patient Problems (1) COPD (chronic obstructive pulmonary disease) Current Visit: Yes Status: Acute Code(s): J44.9 - CHRONIC OBSTRUCTIVE PULMONARY DISEASE, UNSPECIFIED SNOMED Code(s): 50048461 Comment: The patient is feeling as SOB as yesterday. I suspect his underlying COPD is contributing. Will repeat CXR tomorrow AM. Start prednisone today as there was an occassional wheeze on exam today. Continue prn nebs. May be that the patient goes home with supplemental O2 to continue to monitor his symptoms. He will likely continue to feel SOB but currently there is no clear cause for his dyspnea other than his underlying COPD. (2) Parapneumonic effusion Current Visit: Yes Status: Acute Code(s): J18.9 - PNEUMONIA, UNSPECIFIED ORGANISM; J91.8 - PLEURAL EFFUSION IN OTHER CONDITIONS CLASSIFIED ELSEWHERE SNOMED Code(s): 28921914 Comment: S/P thoracentesis on admission. No signs of infection or malignancy in the fluid. (3) Elevated troponin Current Visit: Yes Status: Acute Code(s): R79.89 - OTHER SPECIFIED ABNORMAL FINDINGS OF BLOOD CHEMISTRY SNOMED Code(s): 726143746 Comment: Likely secondary to demand ischemia from hypoxia. Echo did not reveal any wall motion abnormalities. Could consider outpatient stress test once pt has recovered from his current illness. (4) Hyponatremia Current Visit: Yes Status: Acute Code(s): E87.1 - HYPO-OSMOLALITY AND HYPONATREMIA SNOMED Code(s): 38488060 Comment: Resolved. (5) Hypothyroid Current Visit: Yes Status: Acute Code(s): E03.9 - HYPOTHYROIDISM, UNSPECIFIED SNOMED Code(s): 34031354 Comment: Continue current dose of synthroid. (6) DVT prophylaxis Current Visit: Yes Status: Acute Code(s): ARO3879 - SNOMED Code(s): 656324267 Comment: SQ heparin (7) Full code status Current Visit: Yes Status: Acute Code(s): Z78.9 - OTHER SPECIFIED HEALTH STATUS SNOMED Code(s): 116130556
--- NOTE | 2016-10-03 15:13 | PN ---
Progress Note - Progress Note Note: PUlm consult f/u note 10/03/16. pt seen and examined at bedside. Pt reports feeling same. Has been having cough and abd pain associated with cough. Had BM Active Medications Generic Name Dose Route Start Last Admin Trade Name Freq PRN Reason Stop Dose Admin Acetaminophen 650 mg 09/30/16 12:16 Tylenol Tab* PO Q4H PRN FEVER/PAIN Albuterol/Ipratropium 1 neb 10/03/16 13:18 Duoneb Neb.Leila* INH Q6H PRN SOB/WHEEZING Benzonatate 100 mg 10/01/16 20:09 10/03/16 09:57 Tessalon Cap* PO 100 mg BID PRN Administration COUGH Guaifenesin/Dextromethorphan 5 ml 10/01/16 23:05 10/03/16 09:57 Robitussin Dm* PO 5 ml Q4H PRN Administration COUGH Heparin Sodium (Porcine) 5,000 units 09/30/16 14:00 10/03/16 14:54 Heparin Vial(*) SUBCUT 5,000 units Q8HR AMBROSIO Administration Levothyroxine Sodium 50 mcg 10/02/16 07:00 10/02/16 07:14 Synthroid Tab* PO 50 mcg EVERY OTHER DAY@0600 AMBROSIO Administration Mometasone Furoate/Formoterol Fumar 2 puff 09/30/16 13:00 10/03/16 08:58 Dulera 200/5 Mdi* INH 2 puff BID AMBROSIO Administration Ondansetron HCl 4 mg 09/30/16 12:16 Zofran Inj* IV Q6H PRN NAUSEA Polyethylene Glycol/Electrolytes 17 gm 10/02/16 21:00 10/03/16 09:50 Miralax* PO Not Given 0800,2100 AMBROSIO Prednisone 40 mg 10/03/16 15:00 Deltasone Tab* PO DAILY AMBROSIO Vital Signs Temp Pulse Resp BP Pulse Ox 98.3 F 91 16 133/65 93 10/03/16 07:44 10/03/16 11:28 10/03/16 11:28 10/03/16 07:44 10/03/16 11:28 Gen:Pt in NAD HEENT: No Scleral Icterus, Mucous Membranes Moist Respiratory: Symmetrical Chest Expansion and Respiratory Effort, Clear to Auscultation, slightly diminished breath sounds at the Rt base Cardiovascular: NL Sounds; No Murmurs; No JVD, RRR Extremities: No Clubbing, Cyanosis Skin: No Rash or Ulcers, No Nodules or Sclerosis Neurological: Alert and Oriented x 3 Laboratory Results - last 24 hr 09/30/16 09/30/16 09/30/16 09:15 13:13 13:13 Osmolality 271 L Fluid Source Pleural Pleural Fluid pH 7.8 Fluid LDH 475 Microbiology and Other Data: Microbiology 09/30/16 13:13 Sterile Body Fluid Culture - Preliminary Pleural Fluid No Growth Day 1 Sterile Body Fluid Culture - Preliminary No Growth Day 1 09/30/16 13:13 Gram Stain - Final Body Fluid - Pleura CXR: Improved aeration of rt lung with small effusion at base and loculated pocket in Rt mid lung. Elevated Rt elton diaphraghm, also seen on prior CXR I/R: Pt is 81 yo M with COPD, BPH and hypothyroidism who presented to the ER with c/o SOB and was found to have a large R pleural effusion. Parapneumonic effusion on rt side S/P thoracentesis and removal of 1L of dark fluid, exudate, cultures negative, cytology negative. Pt with SOB with no CXR changes.Had BM, with less distended abd Elevated troponin- Likely secondary to demand ischemia from hypoxia. Echo did not reveal any wall motion abnormalities. c/w bronchodilators for COPD,agree with low dose steroids Pt with low grade fever and parapneumonic effusion, c/w abx c/w O2 supplementation D/w Dr Beach
[2016-10-03] MEDS: predniSONE TAB* 20 MG PO SCH (16:00)
[2016-10-04] MEDS: Heparin VIAL(*) 5000 UNITS/ML VIAL (FIVE THOUSAND) SUBCUT SCH ×3 (05:52→21:39)
[2016-10-04] MEDS: Levothyroxine TAB* 50 MCG TAB PO SCH (05:52)
[2016-10-04] MEDS: Polyethylene Glycol 3350* 17 GM PACKET PO SCH ×2 (07:32→21:38)
[2016-10-04] MEDS: predniSONE TAB* 20 MG PO SCH (07:35)
--- NOTE | 2016-10-04 09:06 | RAD ---
HISTORY: Dyspnea COMPARISONS: October 01, 2016 VIEWS: 2: Frontal dual-energy and lateral views of the chest. FINDINGS: CARDIOMEDIASTINAL SILHOUETTE: The cardiomediastinal silhouette is normal. LOVE: The love are normal. PLEURA: There is a small to moderate right pleural effusion. This is somewhat increased from the most recent previous examination. LUNG PARENCHYMA: There is patchy alveolar opacification of the right lung base ABDOMEN: The upper abdomen is clear. There is no subphrenic gas. BONES AND SOFT TISSUES: No bone or soft tissue abnormalities are noted. OTHER: None. IMPRESSION: SMALL TO MODERATE RIGHT PLEURAL EFFUSION, SOMEWHAT INCREASED FROM OCTOBER 01, 2016, WITH RIGHT BASILAR ATELECTASIS VERSUS CONSOLIDATION
[2016-10-04] MEDS: Mometasone/Formoter 200/5 MDI INH SCH ×2 (09:44→22:38)
--- NOTE | 2016-10-04 13:42 | PN ---
Subjective Date of Service: 10/04/16 Interval History: Pt is feeling slightly better today. He states his cough is less and he has less chest pain. His breathing is feeling better. He had a low grade temp overnight. Objective Active Medications: Acetaminophen (Tylenol Tab*) 650 mg PO Q4H PRN PRN Reason: FEVER/PAIN Albuterol/Ipratropium (Duoneb Neb.Leila*) 1 neb INH Q6H PRN PRN Reason: SOB/WHEEZING Benzonatate (Tessalon Cap*) 100 mg PO BID PRN PRN Reason: COUGH Last Admin: 10/03/16 09:57 Dose: 100 mg Guaifenesin/Dextromethorphan (Robitussin Dm*) 5 ml PO Q4H PRN PRN Reason: COUGH Last Admin: 10/03/16 09:57 Dose: 5 ml Heparin Sodium (Porcine) (Heparin Vial(*)) 5,000 units SUBCUT Q8HR [facility] Last Admin: 10/04/16 05:52 Dose: 5,000 units Ceftriaxone Sodium 1,000 mg/ (Sodium Chloride) 50 mls @ 200 mls/hr IVPB Q24H [facility] Last Admin: 10/03/16 18:18 Dose: 200 mls/hr Levothyroxine Sodium (Synthroid Tab*) 50 mcg PO EVERY OTHER DAY@0600 [facility] Last Admin: 10/04/16 05:52 Dose: 50 mcg Mometasone Furoate/Formoterol Fumar (Dulera 200/5 Mdi*) 2 puff INH BID [facility] Last Admin: 10/04/16 09:44 Dose: 2 puff Ondansetron HCl (Zofran Inj*) 4 mg IV Q6H PRN PRN Reason: NAUSEA Polyethylene Glycol/Electrolytes (Miralax*) 17 gm PO 0800,2100 [facility] Last Admin: 10/04/16 07:32 Dose: Not Given Prednisone (Deltasone Tab*) 40 mg PO DAILY [facility] Last Admin: 10/04/16 07:35 Dose: 40 mg Vital Signs 10/03/16 10/03/16 10/03/16 15:08 20:00 21:34 Temperature 100.8 F Pulse Rate 94 86 Respiratory 16 16 16 Rate Blood Pressure 124/61 (mmHg) O2 Sat by Pulse 92 92 91 Oximetry 10/03/16 10/04/16 10/04/16 23:49 07:35 07:39 Temperature 97.6 F 97.5 F Pulse Rate 82 81 Respiratory 18 16 16 Rate Blood Pressure 116/66 130/79 (mmHg) O2 Sat by Pulse 93 93 Oximetry 10/04/16 10/04/16 10/04/16 09:53 10:23 10:43 Temperature Pulse Rate 89 Respiratory 20 Rate Blood Pressure (mmHg) O2 Sat by Pulse 95 91 83 Oximetry Oxygen Devices in Use Now: Nasal Cannula - 4L-95% Appearance: Elderly male sitting on the edge of the bed, NAD Eyes: No Scleral Icterus Ears/Nose/Mouth/Throat: Mucous Membranes Moist Respiratory: Symmetrical Chest Expansion and Respiratory Effort, Clear to Auscultation Cardiovascular: NL Sounds; No Murmurs; No JVD, RRR, No Edema Abdominal: NL Sounds; No Tenderness; No Distention Extremities: No Clubbing, Cyanosis Skin: No Rash or Ulcers, No Nodules or Sclerosis Neurological: Alert and Oriented x 3 Result Diagrams: 10/02/16 05:42 10/02/16 05:42 Additional Lab and Data: Lab Results 09/30/16 09/30/16 09/30/16 Range/Units 09:15 09:15 09:15 WBC 8.0 (3.5-10.8) 10^3/ul RBC 4.55 (4.0-5.4) 10^6/ul Hgb 14.5 (14.0-18.0) g/dl Hct 43 (42-52) % MCV 94 (80-94) fL MCH 32 H (27-31) pg MCHC 34 (31-36) g/dl RDW 13 (10.5-15) % Plt Count 258 (150-450) 10^3/ul MPV 8 (7.4-10.4) um3 Neut % (Auto) 72.8 (38-83) % Lymph % (Auto) 16.3 L (25-47) % [place] % (Auto) 9.1 H (1-9) % Eos % (Auto) 1.4 (0-6) % Baso % (Auto) 0.4 (0-2) % Absolute Neuts (auto) 5.8 (1.5-7.7) 10^3/ul Absolute Lymphs (auto) 1.3 (1.0-4.8) 10^3/ul Absolute Monos (auto) 0.7 (0-0.8) 10^3/ul Absolute Eos (auto) 0.1 (0-0.6) 10^3/ul Absolute Basos (auto) 0 (0-0.2) 10^3/ul Absolute Nucleated RBC 0 10^3/ul Nucleated RBC % 0 INR (Anticoag Therapy) 1.07 (0.89-1.11) APTT 33.3 (26.0-36.3) seconds Sodium 128 L (133-145) mmol/L Potassium 4.2 (3.5-5.0) mmol/L Chloride 97 L (101-111) mmol/L Carbon Dioxide 24 (22-32) mmol/L Anion Gap 7 (2-11) mmol/L BUN 9 (6-24) mg/dL Creatinine 0.92 (0.67-1.17) mg/dL Est GFR ( Amer) 101.5 (>60) Est GFR (Non-Af Amer) 79.0 (>60) BUN/Creatinine Ratio 9.8 (8-20) Glucose 100 (70-100) mg/dL Lactic Acid (0.5-2.0) mmol/L Calcium 8.9 (8.6-10.3) mg/dL Total Bilirubin 0.80 (0.2-1.0) mg/dL AST 17 (13-39) U/L ALT 16 (7-52) U/L Alkaline Phosphatase 59 (34-104) U/L Troponin I 0.07 H* (<0.04) ng/mL Total Protein 7.3 (6.4-8.9) g/dL Albumin 3.4 (3.2-5.2) g/dL Globulin 3.9 (2-4) g/dL Albumin/Globulin Ratio 0.9 L (1-3) Urine Color Urine Appearance Urine pH (5-9) Ur Specific [place] (1.010-1.030) Urine Protein (Negative) Urine Ketones (Negative) Urine Blood (Negative) Urine Nitrate (Negative) Urine Bilirubin (Negative) Urine Urobilinogen (Negative) Ur Leukocyte Esterase (Negative) Urine Glucose (Negative) 09/30/16 09/30/16 Range/Units 09:15 10:20 WBC (3.5-10.8) 10^3/ul RBC (4.0-5.4) 10^6/ul Hgb (14.0-18.0) g/dl Hct (42-52) % MCV (80-94) fL MCH (27-31) pg MCHC (31-36) g/dl RDW (10.5-15) % Plt Count (150-450) 10^3/ul MPV (7.4-10.4) um3 Neut % (Auto) (38-83) % Lymph % (Auto) (25-47) % [place] % (Auto) (1-9) % Eos % (Auto) (0-6) % Baso % (Auto) (0-2) % Absolute Neuts (auto) (1.5-7.7) 10^3/ul Absolute Lymphs (auto) (1.0-4.8) 10^3/ul Absolute Monos (auto) (0-0.8) 10^3/ul Absolute Eos (auto) (0-0.6) 10^3/ul Absolute Basos (auto) (0-0.2) 10^3/ul Absolute Nucleated RBC 10^3/ul Nucleated RBC % INR (Anticoag Therapy) (0.89-1.11) APTT (26.0-36.3) seconds Sodium (133-145) mmol/L Potassium (3.5-5.0) mmol/L Chloride (101-111) mmol/L Carbon Dioxide (22-32) mmol/L Anion Gap (2-11) mmol/L BUN (6-24) mg/dL Creatinine (0.67-1.17) mg/dL Est GFR ( Amer) (>60) Est GFR (Non-Af Amer) (>60) BUN/Creatinine Ratio (8-20) Glucose (70-100) mg/dL Lactic Acid 0.8 (0.5-2.0) mmol/L Calcium (8.6-10.3) mg/dL Total Bilirubin (0.2-1.0) mg/dL AST (13-39) U/L ALT (7-52) U/L Alkaline Phosphatase (34-104) U/L Troponin I (<0.04) ng/mL Total Protein (6.4-8.9) g/dL Albumin (3.2-5.2) g/dL Globulin (2-4) g/dL Albumin/Globulin Ratio (1-3) Urine Color Sylvia Urine Appearance Cloudy Urine pH 5.0 (5-9) Ur Specific [place] 1.021 (1.010-1.030) Urine Protein Negative (Negative) Urine Ketones Trace H (Negative) Urine Blood Negative (Negative) Urine Nitrate Negative (Negative) Urine Bilirubin Negative (Negative) Urine Urobilinogen Negative (Negative) Ur Leukocyte Esterase Negative (Negative) Urine Glucose Negative (Negative) Microbiology and Other Data: Microbiology 09/30/16 13:13 Sterile Body Fluid Culture - Preliminary Pleural Fluid No Growth Day 1 Sterile Body Fluid Culture - Preliminary No Growth Day 1 09/30/16 13:13 Gram Stain - Final Body Fluid - Pleura Assess/Plan/Problems-Billing Mr Pineda is an 81 yo M who has a h/o COPD, BPH and hypothyroidism who presented to the ER with c/o SOB and was found to have a large R pleural effusion. - Patient Problems (1) COPD (chronic obstructive pulmonary disease) Current Visit: Yes Status: Acute Code(s): J44.9 - CHRONIC OBSTRUCTIVE PULMONARY DISEASE, UNSPECIFIED SNOMED Code(s): 78206169 Comment: Dyspnea is somewhat improved today. His lung exam is better today. Will continue ceftriaxone for now-treat for a total of 10 days. Continue prednisone 40mg daily. Plan for d/c home tomorrow. (2) Parapneumonic effusion Current Visit: Yes Status: Acute Code(s): J18.9 - PNEUMONIA, UNSPECIFIED ORGANISM; J91.8 - PLEURAL EFFUSION IN OTHER CONDITIONS CLASSIFIED ELSEWHERE SNOMED Code(s): 77296574 Comment: S/P thoracentesis on admission. No signs of infection or malignancy in the fluid. (3) Elevated troponin Current Visit: Yes Status: Acute Code(s): R79.89 - OTHER SPECIFIED ABNORMAL FINDINGS OF BLOOD CHEMISTRY SNOMED Code(s): 439260449 Comment: Likely secondary to demand ischemia from hypoxia. Echo did not reveal any wall motion abnormalities. Could consider outpatient stress test once pt has recovered from his current illness. (4) Hyponatremia Current Visit: Yes Status: Acute Code(s): E87.1 - HYPO-OSMOLALITY AND HYPONATREMIA SNOMED Code(s): 93625647 Comment: Resolved. (5) Hypothyroid Current Visit: Yes Status: Acute Code(s): E03.9 - HYPOTHYROIDISM, UNSPECIFIED SNOMED Code(s): 48965574 Comment: Continue current dose of synthroid. (6) DVT prophylaxis Current Visit: Yes Status: Acute Code(s): [id number] - SNOMED Code(s): 596756282 Comment: SQ heparin (7) Full code status Current Visit: Yes Status: Acute Code(s): Z78.9 - OTHER SPECIFIED HEALTH STATUS SNOMED Code(s): 629026325
[2016-10-04] MEDS: cefTRIAXone VIAL(*) 1,000 MG in NS 0.9% 50 ML* 50 ML IVPB SCH (15:57)
[2016-10-05] MEDS: Heparin VIAL(*) 5000 UNITS/ML VIAL (FIVE THOUSAND) SUBCUT SCH (05:34)
[2016-10-05] MEDS: predniSONE TAB* 20 MG PO SCH (08:09)
[2016-10-05] MEDS: Polyethylene Glycol 3350* 17 GM PACKET PO SCH (08:11)
[2016-10-05 08:31] VITALS: BP 115/52
[2016-10-05] MEDS: Mometasone/Formoter 200/5 MDI INH SCH (08:55)
[2016-10-05] MEDS ORDERED: cefTRIAXone VIAL(*) 1,000 MG VIAL IM ONE (12:36)
--- NOTE | 2016-10-05 12:48 | PN ---
Subjective Date of Service: 10/05/16 Interval History: Pt is feeling ok. He has some mild discomfort in the R sided continuously but worse with coughing. Slightly tender to palpation on the R lower ribs. Cough is improved some. Objective Active Medications: Acetaminophen (Tylenol Tab*) 650 mg PO Q4H PRN PRN Reason: FEVER/PAIN Albuterol/Ipratropium (Duoneb Neb.Leila*) 1 neb INH Q6H PRN PRN Reason: SOB/WHEEZING Benzonatate (Tessalon Cap*) 100 mg PO BID PRN PRN Reason: COUGH Last Admin: 10/03/16 09:57 Dose: 100 mg Guaifenesin/Dextromethorphan (Robitussin Dm*) 5 ml PO Q4H PRN PRN Reason: COUGH Last Admin: 10/03/16 09:57 Dose: 5 ml Heparin Sodium (Porcine) (Heparin Vial(*)) 5,000 units SUBCUT Q8HR [facility] Last Admin: 10/05/16 05:34 Dose: 5,000 units Levothyroxine Sodium (Synthroid Tab*) 50 mcg PO EVERY OTHER DAY@0600 [facility] Last Admin: 10/04/16 05:52 Dose: 50 mcg Mometasone Furoate/Formoterol Fumar (Dulera 200/5 Mdi*) 2 puff INH BID [facility] Last Admin: 10/05/16 08:55 Dose: 2 puff Ondansetron HCl (Zofran Inj*) 4 mg IV Q6H PRN PRN Reason: NAUSEA Polyethylene Glycol/Electrolytes (Miralax*) 17 gm PO 0800,2100 [facility] Last Admin: 10/05/16 08:11 Dose: Not Given Prednisone (Deltasone Tab*) 40 mg PO DAILY [facility] Last Admin: 10/05/16 08:09 Dose: 40 mg Vital Signs 10/04/16 10/04/16 10/04/16 15:14 17:31 20:00 Temperature 97.3 F Pulse Rate 84 Respiratory 20 20 Rate Blood Pressure 122/65 (mmHg) O2 Sat by Pulse 93 95 95 Oximetry 10/04/16 10/04/16 10/05/16 22:34 23:50 07:18 Temperature 98.3 F 97.5 F Pulse Rate 77 78 76 Respiratory 16 16 20 Rate Blood Pressure 111/54 115/52 (mmHg) O2 Sat by Pulse 92 96 95 Oximetry 10/05/16 10/05/16 08:00 11:39 Temperature Pulse Rate 78 Respiratory 20 16 Rate Blood Pressure (mmHg) O2 Sat by Pulse 95 96 Oximetry Oxygen Devices in Use Now: Nasal Cannula - 2L-95% Appearance: Elderly male sitting on the edge of the bed, NAD Eyes: No Scleral Icterus Ears/Nose/Mouth/Throat: Mucous Membranes Moist Respiratory: Symmetrical Chest Expansion and Respiratory Effort, Clear to Auscultation - slightly decreased breath sounds R base Cardiovascular: NL Sounds; No Murmurs; No JVD, RRR, No Edema Abdominal: NL Sounds; No Tenderness; No Distention Extremities: No Clubbing, Cyanosis Skin: No Rash or Ulcers, No Nodules or Sclerosis Neurological: Alert and Oriented x 3 Result Diagrams: 10/02/16 05:42 10/02/16 05:42 Additional Lab and Data: Lab Results 09/30/16 09/30/16 09/30/16 Range/Units 09:15 09:15 09:15 WBC 8.0 (3.5-10.8) 10^3/ul RBC 4.55 (4.0-5.4) 10^6/ul Hgb 14.5 (14.0-18.0) g/dl Hct 43 (42-52) % MCV 94 (80-94) fL MCH 32 H (27-31) pg MCHC 34 (31-36) g/dl RDW 13 (10.5-15) % Plt Count 258 (150-450) 10^3/ul MPV 8 (7.4-10.4) um3 Neut % (Auto) 72.8 (38-83) % Lymph % (Auto) 16.3 L (25-47) % [place] % (Auto) 9.1 H (1-9) % Eos % (Auto) 1.4 (0-6) % Baso % (Auto) 0.4 (0-2) % Absolute Neuts (auto) 5.8 (1.5-7.7) 10^3/ul Absolute Lymphs (auto) 1.3 (1.0-4.8) 10^3/ul Absolute Monos (auto) 0.7 (0-0.8) 10^3/ul Absolute Eos (auto) 0.1 (0-0.6) 10^3/ul Absolute Basos (auto) 0 (0-0.2) 10^3/ul Absolute Nucleated RBC 0 10^3/ul Nucleated RBC % 0 INR (Anticoag Therapy) 1.07 (0.89-1.11) APTT 33.3 (26.0-36.3) seconds Sodium 128 L (133-145) mmol/L Potassium 4.2 (3.5-5.0) mmol/L Chloride 97 L (101-111) mmol/L Carbon Dioxide 24 (22-32) mmol/L Anion Gap 7 (2-11) mmol/L BUN 9 (6-24) mg/dL Creatinine 0.92 (0.67-1.17) mg/dL Est GFR ( Amer) 101.5 (>60) Est GFR (Non-Af Amer) 79.0 (>60) BUN/Creatinine Ratio 9.8 (8-20) Glucose 100 (70-100) mg/dL Lactic Acid (0.5-2.0) mmol/L Calcium 8.9 (8.6-10.3) mg/dL Total Bilirubin 0.80 (0.2-1.0) mg/dL AST 17 (13-39) U/L ALT 16 (7-52) U/L Alkaline Phosphatase 59 (34-104) U/L Troponin I 0.07 H* (<0.04) ng/mL Total Protein 7.3 (6.4-8.9) g/dL Albumin 3.4 (3.2-5.2) g/dL Globulin 3.9 (2-4) g/dL Albumin/Globulin Ratio 0.9 L (1-3) Urine Color Urine Appearance Urine pH (5-9) Ur Specific [place] (1.010-1.030) Urine Protein (Negative) Urine Ketones (Negative) Urine Blood (Negative) Urine Nitrate (Negative) Urine Bilirubin (Negative) Urine Urobilinogen (Negative) Ur Leukocyte Esterase (Negative) Urine Glucose (Negative) 09/30/16 09/30/16 Range/Units 09:15 10:20 WBC (3.5-10.8) 10^3/ul RBC (4.0-5.4) 10^6/ul Hgb (14.0-18.0) g/dl Hct (42-52) % MCV (80-94) fL MCH (27-31) pg MCHC (31-36) g/dl RDW (10.5-15) % Plt Count (150-450) 10^3/ul MPV (7.4-10.4) um3 Neut % (Auto) (38-83) % Lymph % (Auto) (25-47) % [place] % (Auto) (1-9) % Eos % (Auto) (0-6) % Baso % (Auto) (0-2) % Absolute Neuts (auto) (1.5-7.7) 10^3/ul Absolute Lymphs (auto) (1.0-4.8) 10^3/ul Absolute Monos (auto) (0-0.8) 10^3/ul Absolute Eos (auto) (0-0.6) 10^3/ul Absolute Basos (auto) (0-0.2) 10^3/ul Absolute Nucleated RBC 10^3/ul Nucleated RBC % INR (Anticoag Therapy) (0.89-1.11) APTT (26.0-36.3) seconds Sodium (133-145) mmol/L Potassium (3.5-5.0) mmol/L Chloride (101-111) mmol/L Carbon Dioxide (22-32) mmol/L Anion Gap (2-11) mmol/L BUN (6-24) mg/dL Creatinine (0.67-1.17) mg/dL Est GFR ( Amer) (>60) Est GFR (Non-Af Amer) (>60) BUN/Creatinine Ratio (8-20) Glucose (70-100) mg/dL Lactic Acid 0.8 (0.5-2.0) mmol/L Calcium (8.6-10.3) mg/dL Total Bilirubin (0.2-1.0) mg/dL AST (13-39) U/L ALT (7-52) U/L Alkaline Phosphatase (34-104) U/L Troponin I (<0.04) ng/mL Total Protein (6.4-8.9) g/dL Albumin (3.2-5.2) g/dL Globulin (2-4) g/dL Albumin/Globulin Ratio (1-3) Urine Color [place] Urine Appearance Cloudy Urine pH 5.0 (5-9) Ur Specific [place] 1.021 (1.010-1.030) Urine Protein Negative (Negative) Urine Ketones Trace H (Negative) Urine Blood Negative (Negative) Urine Nitrate Negative (Negative) Urine Bilirubin Negative (Negative) Urine Urobilinogen Negative (Negative) Ur Leukocyte Esterase Negative (Negative) Urine Glucose Negative (Negative) Microbiology and Other Data: Microbiology 09/30/16 13:13 Sterile Body Fluid Culture - Preliminary Pleural Fluid No Growth Day 1 Sterile Body Fluid Culture - Preliminary No Growth Day 1 09/30/16 13:13 Gram Stain - Final Body Fluid - Pleura Assess/Plan/Problems-Billing Mr Pineda is an 81 yo M who has a h/o COPD, BPH and hypothyroidism who presented to the ER with c/o SOB and was found to have a large R pleural effusion. - Patient Problems (1) COPD (chronic obstructive pulmonary disease) Current Visit: Yes Status: Acute Code(s): J44.9 - CHRONIC OBSTRUCTIVE PULMONARY DISEASE, UNSPECIFIED SNOMED Code(s): 34606190 Comment: Dyspnea is somewhat better again today. He is able to get around ok. He is requirring less O2. Continue prednisone taper. Treat for 3 more days as outpatient with vantin 200mg BID. (2) Parapneumonic effusion Current Visit: Yes Status: Acute Code(s): J18.9 - PNEUMONIA, UNSPECIFIED ORGANISM; J91.8 - PLEURAL EFFUSION IN OTHER CONDITIONS CLASSIFIED ELSEWHERE SNOMED Code(s): 02851677 Comment: S/P thoracentesis on admission. No signs of infection or malignancy in the fluid. (3) Elevated troponin Current Visit: Yes Status: Acute Code(s): R79.89 - OTHER SPECIFIED ABNORMAL FINDINGS OF BLOOD CHEMISTRY SNOMED Code(s): 287438840 Comment: Likely secondary to demand ischemia from hypoxia. Echo did not reveal any wall motion abnormalities. Could consider outpatient stress test once pt has recovered from his current illness. (4) Hyponatremia Current Visit: Yes Status: Acute Code(s): E87.1 - HYPO-OSMOLALITY AND HYPONATREMIA SNOMED Code(s): 42711106 Comment: Resolved. (5) Hypothyroid Current Visit: Yes Status: Acute Code(s): E03.9 - HYPOTHYROIDISM, UNSPECIFIED SNOMED Code(s): 39098385 Comment: Continue current dose of synthroid. (6) DVT prophylaxis Current Visit: Yes Status: Acute Code(s): JAQ3503 - SNOMED Code(s): 243842163 Comment: SQ heparin (7) Full code status Current Visit: Yes Status: Acute Code(s): Z78.9 - OTHER SPECIFIED HEALTH STATUS SNOMED Code(s): 485135328 Status and Disposition: d/c home
[2016-10-05] MEDS ORDERED: Lidocaine 1% INJ* 10 MG/ML 30 ML SDV ONE (13:23)
--- NOTE | 2016-10-06 13:12 | DS ---
DISCHARGE SUMMARY: DATE OF ADMISSION: 09/30/16 DATE OF DISCHARGE: 10/05/16 PRIMARY CARE PROVIDER: Dr. Mckeon. PRINCIPAL DIAGNOSIS: Right parapneumonic effusion. SECONDARY DIAGNOSES: 1. BPH. 2. History of bladder cancer. 3. Peripheral vascular disease. 3. Chronic obstructive pulmonary disease. 4. Hypothyroidism. DISCHARGE MEDICATIONS: 1. Synthroid 50 mcg p.o. every other day. 2. Albuterol 1 neb inhaled q.4 hours p.r.n. shortness of breath. 3. Prednisone 40 mg p.o. daily x3 days, then 30 mg x3 days, then 20 mg x3 days , then 10 mg x4 days. 4. Vantin 200 mg p.o. q.12 hours x3 days. 5. Tessalon 100 mg p.o. t.i.d. p.r.n. cough. HOSPITAL COURSE: Mr. Pineda is an 81-year-old male who was diagnosed with right - sided pneumonia in mid August by his primary care provider. The patient was treated with antibiotics and steroids. The patient initially began to feel well; however, then began to worsen again. He presented to the emergency room on 09/30/16 with complaints of shortness of breath and weakness. The patient was found to have a right-sided pleural effusion and that he was hypoxic requiring 2 L of oxygen. The patient was seen in consultation by Dr. Major who performed a bedside thoracentesis. Approximately 1 L of pleural fluid was removed. This was sent for both culture and cytology. Both were negative. The patient stated that initially he felt quite well after the thoracentesis; however, he then began to feel increasing shortness of breath. The patient's major complaint from 10/02/16 through 10/05/16 was persistent shortness of breath. He states that he does not feel any better than prior to the thoracentesis. The patient was ultimately started on prednisone to see if this would help. The patient was continued on antibiotic therapy. He received IV ceftriaxone while hospitalized, then followed by 3 days of Vantin 200 mg q.12 hours. Again, the patient never grew any bacteria out of the pleural fluid and there was no clear evidence of infiltrate on chest x- ray. The patient did have one low-grade fever of 100.8 on the afternoon of 10/03/16. I suspect much of the patient's dyspnea is related to his underlying COPD. I suspect the pneumonia and pleural effusion set him in back and this will likely be his new baseline. The patient was not very accepting of this possibility, but we did discuss continuing to monitor his symptoms for other signs of infection and re-presenting to the emergency room if he does not improve. It did become clear, however, the patient was going to require supplemental oxygen. The patient is requiring 2 L continuously and this has already been set up for him by his primary care provider. At this point, it is felt that the patient is stable for discharge home. Of note, the patient had a very mildly elevated troponin of 0.07 on admission. It has trended down to 0.06 by the third read. I suspect this represents demand ischemia related to hypoxia present on admission. He did undergo a transthoracic echocardiogram that revealed an EF of 55% to 60% and normal left ventricular wall motion and contractility. Once the patient has recovered from his acute illness, an outpatient stress test could be considered. FOLLOWUP CONCERNS: The patient is being discharged home today, 10/05/16. He is to follow up with Dr. Mckeon in the next 4 to [address] Major in the next 1 to 2 weeks. ACTIVITY LEVEL: As tolerated. DIET: Low fat. CONDITION ON DISCHARGE: Stable. TIME SPENT: Thirty-five minutes was spent discharging this patient. CC: Dr. Mckeon* [id number]/CPS #: [id number] MTDE[place]
== END 2016-10-05 13:50 | disposition home or self-care (01) | DRG 186 ==
LOC: ED 08:36 → MEDTELE 12:09
PROVIDERS: ADMIT Internal Medicine; ATTEND Hospitalist
PROC: 0W993ZZ Drainage of Right Pleural Cavity, Percutaneous Approach (ICD-10-PCS; principal; 2016-09-30)
DX: J90 Pleural effusion, not elsewhere classified (principal); J18.9 Pneumonia, unspecified organism; J44.9 Chronic obstructive pulmonary disease, unspecified; E87.1 Hypo-osmolality and hyponatremia; I73.9 Peripheral vascular disease, unspecified; N40.0 Benign prostatic hyperplasia without lower urinary tract symptoms; R09.02 Hypoxemia; E03.9 Hypothyroidism, unspecified; R74.8 Abnormal levels of other serum enzymes; Z85.51 Personal history of malignant neoplasm of bladder; Z87.891 Personal history of nicotine dependence; Z85.828 Personal history of other malignant neoplasm of skin
CPT/HCPCS: 36415; 71020; 71275; 76604; 80048; 80053; 81003; 83605; 83615; 83880; 83930; 83935; 83986; 84157; 84300; 84302; 84484; 85025; 85610; 85730; 87040; 87070; 87205; 89051; 93005; 93306; 94640; 94760; 99284; A9270-GY; J0456; J0696; J1644; J2930; J7512; Q9967

== ENCOUNTER 2016-11-03 12:28 | Inpatient (IN) | payer MEDICARE ==
[2016-11-03 14:22] LABS: Hematocrit 34 % (42-52); Hemoglobin 11.1 g/dl (14.0-18.0); Mean Corpuscular HGB Conc 33 g/dl (31-36); Mean Corpuscular Hemoglobin 30 pg (27-31); Mean Corpuscular Volume 91 fL (80-94); Mean Platelet Volume 7 um3 (7.4-10.4); Red Blood Count 3.74 10^6/ul (4.0-5.4); Red Cell Distribution Width 14 % (10.5-15); White Blood Count 11.1 10^3/ul (3.5-10.8)
--- NOTE | 2016-11-03 14:28 | RAD ---
HISTORY: Shortness breath, history of right pleural effusion COMPARISONS: October 15, 2016 VIEWS:1: Single frontal portable view of the chest at 2:19 PM FINDINGS: LINES AND TUBES: None. CARDIOMEDIASTINAL SILHOUETTE: The cardiomediastinal silhouette is normal for portable technique. PLEURA: There is a right pleural effusion that appears loculated. This is moderate in size, somewhat progressed from the previous examination LUNG PARENCHYMA: There is patchy linear opacification of the right lung base ABDOMEN: The upper abdomen is clear. There is no subphrenic gas. BONES AND SOFT TISSUES: No bone or soft tissue abnormalities are noted. IMPRESSION: MODERATE, LOCULATED RIGHT PLEURAL EFFUSION WITH RIGHT BASILAR ATELECTASIS VERSUS CONSOLIDATION
[2016-11-03 14:35] LABS: ALT 44 U/L (7-52); Albumin 2.9 g/dL (3.2-5.2); Alkaline Phosphatase 69 U/L (34-104); Blood Urea Nitrogen 13 mg/dL (6-24); CO2 Carbon Dioxide 27 mmol/L (22-32); Calcium 8.9 mg/dL (8.6-10.3); Chloride 97 mmol/L (101-111); EGFR African American 117.6 (>60); EGFR Non-African American 91.5 (>60); Globulin 4.1 g/dL (2-4); Glucose 116 mg/dL (70-100); Sodium 131 mmol/L (133-145)
[2016-11-03] MEDS: NS 0.9% 1000 ML* 2,000 ML IV ONE (14:38)
[2016-11-03 14:39] LABS: Troponin I 0.07 ng/mL (<0.04)
[2016-11-03] MEDS ORDERED: Iohexol 350* (CONTRAST) 500 ML MDV IV ONE (14:42)
--- NOTE | 2016-11-03 15:43 | RAD ---
Indication: Pleuritic chest pain, right pleural effusion. IV contrast: Administered 69.0 ml of OMNIPAQUE 350 mgi/ml CTA of the chest was performed after IV contrast administration. Coronal and sagittal reconstructed images were obtained. Comparison is previous exam dated October 17, 2016. Pulmonary arterial tree is well opacified. There are no filling defects present to suggest pulmonary embolus. Aorta demonstrates no evidence of aortic dissection. Mediastinum demonstrates inferior thyroid lobe is unremarkable. Small scattered 3 to 5 mm precarinal and pretracheal lymph nodes are noted. Subcarinal lymph node measures up to 11 mm. Right hilar lymph node measures up to 14 mm. There is a mass that is poorly enhancing in the right middle lobe with low density center and a thick rim. This has increased in size since previous exam and now measures approximately 3.6 cm in AP dimension previously measuring 2.5 cm. This is suspicious for neoplastic process. Additionally pleural-based masses have increased in size since previous exam measuring 2.9 cm the right upper lobe laterally, 2.4 cm in the right anterior middle lobe, right lower lobe medially measuring up to 2.7 cm. Additional right apical pleural mass measures up to 18 mm. Pleural studding and pleural metastasis is not excluded. The left lung field demonstrates no evidence of alveolar consolidation. The visualized abdominal organs are unremarkable. Likely cyst is noted in the left lobe of liver measuring up to 2.8 cm. IMPRESSION: NO EVIDENCE OF PULMONARY EMBOLUS IS NOTED. NO AORTIC DISSECTION IS NOTED. THERE IS A MASS IN THE RIGHT MIDDLE LOBE THAT HAS A THICK RIM AND IS POORLY ENHANCING WITH ADJACENT ATELECTASIS WHICH HAS INCREASED IN SIZE SINCE SEPTEMBER 30, 2016. THIS IS SUSPICIOUS FOR NEOPLASTIC PROCESS. ADDITIONALLY PLEURAL-BASED LESIONS ARE NOTED IN THE ANTERIOR PLEURA, RIGHT LATERAL PLEURAL AND RIGHT POSTERIOR MEDIAL PLEURA WELL THE RIGHT APEX SUSPICIOUS FOR PLEURAL STUDDING AND/OR METASTASES.
--- NOTE | 2016-11-03 16:11 | ED ---
Fady Quintero Adam, scribed for Christiano Bean MD on 11/03/16 at 1346 . Shortness of Breath - HPI Summary HPI Summary: Pt is an 81 year old male presenting with worsening SOB over the past 3 months. He is a former smoker and has a Hx of COPD. He is currently on 2L o2 via n/c at home and also has a nebulizer with albuterol. He states that the SOB set on in July around and he was diagnosed with PNA on 09/09. On 09/30 he was admitted to the hospital for 5 days and had 1.5 L of fluid taken off the right side of his chest. He was in the hospital with SOB again last week and was told that there were no signs of infection or cancer but that they could not tell him why his SOB was persisting. Pt states that he went from being on no o2 in July to barely being able to walk 20 feet without losing his breath while on o2 now. He also c/o a dry painful cough and occasional night sweats. He denies CP but states that his chest has felt full since he was discharged on 10/06. He denies fever and edema. PMHx also includes hypothyroidism. No Hx of blood clots. - History of Current Complaint Chief Complaint: EDShortnessOfBreath Time Seen by Provider: 11/03/16 13:35 Hx Obtained From: Patient Onset/Duration: Gradual Onset, Lasting Weeks, Still Present Timing: Constant Current Severity: Moderate Dyspnea At: Rest Aggrevating Factors: Movement Alleviating Factors: Bronchodilators, Oxygen Associated Signs & Symptoms: Cough (Nonproductive), Diaphoresis - Night sweats - Allergy/Home Medications Allergies/Adverse Reactions: Allergies Allergy/AdvReac Type Severity Reaction Status Date / Time No Known Allergies Allergy Verified 10/20/16 17:26 Home Medications: Home Medications Albuterol 2.5MG/3ML (0.083%)* [Ventolin 2.5 MG/3 ML NEB.BEN*] 2.5 mg INH QID PRN 11/03/16 [History Confirmed 11/03/16] Fluticasone NASAL SPRAY 50MCG* [Flonase NASAL SPRAY 50MCG*] 1 spray BOTH NARES DAILY PRN 11/03/16 [History Confirmed 11/03/16] Ipratropium [place] 0.06% 2 spray BOTH NARES QID PRN 11/03/16 [History Confirmed 11/03/16] Multivitamins/Minerals TAB* [Theragran/minerals TAB*] 1 tab PO DAILY 11/03/16 [ History Confirmed 11/03/16] PMH/Surg Hx/FS Hx/Imm Hx Endocrine/Hematology History: Reports: Hx Thyroid Disease Denies: Hx Diabetes Cardiovascular History: Denies: Hx Hypertension, Hx Pacemaker/ICD Respiratory History: Reports: Hx Chronic Obstructive Pulmonary Disease (COPD) - MILD, Hx Pneumonia, Other Respiratory Problems/Disorders - pleurisy. DX OF PNEUMONIA 09/09/16. THORACENTESIS 09/2016. Sensory History: Reports: Hx Contacts or Glasses Denies: Hx Hearing Aid Opthamlomology History: Reports: Hx Contacts or Glasses Psychiatric History: Denies: Hx Panic Disorder - Cancer History Cancer Type, Location and Year: BLADDER CA 2007. BASAL CELL CA Hx Chemotherapy: No Hx Radiation Therapy: No - Surgical History Surgery Procedure, Year, and Place: APPENDIX. BLADDER CA 2007. CATARACTS. BASAL CELL CA REMOVED FROM RT EYE LID Hx Anesthesia Reactions: No - Immunization History Date of Tetanus Vaccine: up to date Date of Influenza Vaccine: up to date Infectious Disease History: No Infectious Disease History: Reports: Hx Hepatitis - 50 years ago Denies: Traveled Outside the [place] in Last 30 Days - Family History Known Family History: Negative: Cardiac Disease, Hypertension, Diabetes - Social History Occupation: Retired Lives: With Family - Son Alcohol Use: Occasionally Alcohol Amount: 2 drinks per month Hx Substance Use: No Substance Use Type: Reports: None Hx Tobacco Use: Yes Smoking Status (MU): Former Smoker Type: Cigarettes Amount Used/How Often: 1 ppd Length of Time of Smoking/Using Tobacco: 40 years Have You Smoked in the Last Year: No Review of Systems Constitutional: Negative Positive: Skin Diaphoresis - Night sweats. Negative: Fever Negative: Chest Pain Positive: Shortness Of Breath Negative: Edema All Other Systems Reviewed And Are Negative: Yes Physical Exam - Summary Physical Exam Summary: The patient appears cachectic. The skin is warm and dry and skin color reflects adequate perfusion. HEENT: The head is normocephalic and atraumatic. The pupils are equal and reactive. The conjunctivae are clear and without drainage. Nares are patent and without drainage. Mouth reveals dry oral mucosa. The external ears are intact. Neck is supple with full range of motion and non-tender. There are no carotid bruits. There is no neck vein distension. Respiratory: Diminished breath sounds in the right base. Cardiovascular: Heart is regular rate and rhythm. There is no murmur or rub auscultated. There is no peripheral edema and pulses are symmetrical and equal. Abdomen: The abdomen is soft and non-tender. There are normal bowel sounds heard in all four quadrants and there is no organomegaly palpated. Musculoskeletal: There is no back pain noted. Extremities are non-tender with full range of motion. There is good capillary refill. There is no peripheral edema or calf tenderness elicited. Neurological: Patient is alert and oriented to person, place and time. The patient has symmetrical motor strength in all four extremities. Cranial nerves are grossly intact. Deep tendon reflexes are symmetrical and equal in all four extremities. Psychiatric: The patient has an appropriate affect and does not exhibit any anxiety or depression. Triage Information Reviewed: Yes Vital Signs On Initial Exam: Initial Vitals Temp Pulse Resp BP Pulse Ox 98.6 F 101 24 115/62 93 11/03/16 12:34 11/03/16 12:34 11/03/16 12:34 11/03/16 12:34 11/03/16 12:34 Vital Signs Reviewed: Yes Diagnostics - Vital Signs Vital Signs Temp Pulse Resp BP Pulse Ox 11/03/16 12:34 98.6 F 101 24 115/62 93 - Laboratory Lab Results: Lab Results 11/03/16 11/03/16 11/03/16 Range/Units 13:52 13:52 13:52 WBC 11.1 H (3.5-10.8) 10^3/ul RBC 3.74 L (4.0-5.4) 10^6/ul Hgb 11.1 L (14.0-18.0) g/dl Hct 34 L (42-52) % MCV 91 (80-94) fL MCH 30 (27-31) pg MCHC 33 (31-36) g/dl RDW 14 (10.5-15) % Plt Count 350 (150-450) 10^3/ul MPV 7 L (7.4-10.4) um3 Neut % (Auto) 64.7 (38-83) % Lymph % (Auto) 25.1 (25-47) % Parker % (Auto) 9.1 H (1-9) % Eos % (Auto) 0.3 (0-6) % Baso % (Auto) 0.8 (0-2) % Absolute Neuts (auto) 7.2 (1.5-7.7) 10^3/ul Absolute Lymphs (auto) 2.8 (1.0-4.8) 10^3/ul Absolute Monos (auto) 1.0 H (0-0.8) 10^3/ul Absolute Eos (auto) 0 (0-0.6) 10^3/ul Absolute Basos (auto) 0.1 (0-0.2) 10^3/ul Absolute Nucleated RBC 0 10^3/ul Nucleated RBC % 0 INR (Anticoag Therapy) (0.89-1.11) Sodium 131 L (133-145) mmol/L Potassium TNP Chloride 97 L (101-111) mmol/L Carbon Dioxide 27 (22-32) mmol/L Anion Gap TNP BUN 13 (6-24) mg/dL Creatinine 0.81 (0.67-1.17) mg/dL Est GFR ( Amer) 117.6 (>60) Est GFR (Non-Af Amer) 91.5 (>60) BUN/Creatinine Ratio 16.0 (8-20) Glucose 116 H (70-100) mg/dL Lactic Acid 1.2 (0.5-2.0) mmol/L Calcium 8.9 (8.6-10.3) mg/dL Total Bilirubin 0.60 (0.2-1.0) mg/dL AST TNP ALT 44 (7-52) U/L Alkaline Phosphatase 69 (34-104) U/L Troponin I 0.07 H* (<0.04) ng/mL B-Natriuretic Peptide ( - 100) pg/mL Total Protein 7.0 (6.4-8.9) g/dL Albumin 2.9 L (3.2-5.2) g/dL Globulin 4.1 H (2-4) g/dL Albumin/Globulin Ratio 0.7 L (1-3) 11/03/16 11/03/16 11/03/16 Range/Units 13:52 13:52 15:15 WBC (3.5-10.8) 10^3/ul RBC (4.0-5.4) 10^6/ul Hgb (14.0-18.0) g/dl Hct (42-52) % MCV (80-94) fL MCH (27-31) pg MCHC (31-36) g/dl RDW (10.5-15) % Plt Count (150-450) 10^3/ul MPV (7.4-10.4) um3 Neut % (Auto) (38-83) % Lymph % (Auto) (25-47) % Parker % (Auto) (1-9) % Eos % (Auto) (0-6) % Baso % (Auto) (0-2) % Absolute Neuts (auto) (1.5-7.7) 10^3/ul Absolute Lymphs (auto) (1.0-4.8) 10^3/ul Absolute Monos (auto) (0-0.8) 10^3/ul Absolute Eos (auto) (0-0.6) 10^3/ul Absolute Basos (auto) (0-0.2) 10^3/ul Absolute Nucleated RBC 10^3/ul Nucleated RBC % INR (Anticoag Therapy) 1.21 H (0.89-1.11) Sodium (133-145) mmol/L Potassium 3.8 Chloride (101-111) mmol/L Carbon Dioxide (22-32) mmol/L Anion Gap BUN (6-24) mg/dL Creatinine (0.67-1.17) mg/dL Est GFR ( Amer) (>60) Est GFR (Non-Af Amer) (>60) BUN/Creatinine Ratio (8-20) Glucose (70-100) mg/dL Lactic Acid (0.5-2.0) mmol/L Calcium (8.6-10.3) mg/dL Total Bilirubin (0.2-1.0) mg/dL AST 49 H ALT (7-52) U/L Alkaline Phosphatase (34-104) U/L Troponin I (<0.04) ng/mL B-Natriuretic Peptide 24 ( - 100) pg/mL Total Protein (6.4-8.9) g/dL Albumin (3.2-5.2) g/dL Globulin (2-4) g/dL Albumin/Globulin Ratio (1-3) Result Diagrams: 11/03/16 13:52 11/03/16 15:15 Lab Statement: Any lab studies that have been ordered have been reviewed, and results considered in the medical decision making process. - Radiology CXR Radiology Interpretation Completed By: Radiologist - IMPRESSION: MODERATE, LOCULATED RIGHT PLEURAL EFFUSION WITH RIGHT BASILAR ATELECTASIS VERSUS CONSOLIDATION - CT CHEST/THORAX CTA CT Interpretation Completed By: Radiologist - IMPRESSION: NO EVIDENCE OF PULMONARY EMBOLUS IS NOTED. NO AORTIC DISSECTION IS NOTED. THERE IS A MASS IN THE RIGHT MIDDLE LOBE THAT HAS A THICK RIM AND IS POORLY ENHANCING WITH ADJACENT ATELECTASIS WHICH HAS INCREASED IN SIZE SINCE SEPTEMBER 30, 2016. THIS IS SUSPICIOUS FOR NEOPLASTIC PROCESS. ADDITIONALLY PLEURAL-BASED LESIONS ARE NOTED IN THE ANTERIOR PLEURA, RIGHT LATERAL PLEURAL AND RIGHT POSTERIOR MEDIAL PLEURA WELL THE RIGHT APEX SUSPICIOUS FOR PLEURAL STUDDING AND/OR METASTASES. - EKG 13:37 Cardiac Rate: NL - 83 BPM EKG Rhythm: Sinus Rhythm - Normal EKG Interpretation: Normal axis - Additional Comments Diagnostic Additional Comments: Troponin I - 0.07 Course/Dx - Course Course Of Treatment: Dr. English notified at 1545. he will evaluate the patient for admission. - Diagnoses Differential Diagnosis/HQI/PQRI: Positive: Bronchitis, CHF, COPD Exacerbation, NC, Pneumonia, Pulmonary Embolism, Other - pleural effusion, lung mass Provider Diagnoses: Acute dyspnea, Lung mass Discharge - Discharge Plan Condition: Stable Disposition: ADMITTED TO [facility] Referrals: Bear Mckeon MD [Primary Care Provider] - The documentation as recorded by the Fady sneed Adam accurately reflects the service I personally performed and the decisions made by , Christiano Bean MD.
[2016-11-03] MEDS ORDERED: Albuterol/Ipratropium NEB.SOL* Albuterol 2.5 MG/Ipratropium 0.5 MG 3 ML INH PRN (17:16)
[2016-11-03] MEDS ORDERED: Fluticasone NASAL SPRAY 50MCG* 16 gm SPRAY BTL BOTH NARES PRN (17:32)
[2016-11-03] MEDS ORDERED: Iohexol 300* (CONTRAST) 10 ML SDV IV ONE (18:26)
--- NOTE | 2016-11-03 18:53 | RAD ---
CLINICAL HISTORY: Lung mass, evaluate for metastatic disease COMPARISON: CT chest dated November 03, 2016 TECHNIQUE: Multiple contiguous axial CT scans were obtained of the abdomen and pelvis after the administration of intravenous contrast. Coronal and sagittal multiplanar reformations are submitted for review. Oral contrast was administered. FINDINGS: LUNG BASES: Again noted are multiple pleural-based nodules with a right pleural effusion. LIVER: There are low-attenuation hepatic parenchymal lesions. The largest measure simple fluid in attenuation consistent with a simple hepatic cyst. These are too small to definitively characterize but are also suggestive of cysts. BILE DUCTS: There is no intrahepatic or extrahepatic biliary dilatation. GALLBLADDER: The gallbladder is normal, without pericholecystic inflammatory change. PANCREAS: The pancreas is normal, without mass or ductal dilatation. SPLEEN: Normal in size and appearance. UPPER GI TRACT: Evaluation of the gastrointestinal tract is limited by incomplete gastric distention. The upper GI tract is unremarkable. SMALL BOWEL AND MESENTERY: The small bowel is normal in contour, course, and caliber. There is no obstruction or dilatation. COLON: There are multiple diverticula of the sigmoid colon. There is no pericolonic inflammatory change. ADRENALS: Normal bilaterally. KIDNEYS: The kidneys are normal in shape, size, contour, and axis. There is no hydronephrosis or nephrolithiasis. BLADDER: The bladder is incompletely distended but is grossly normal. PELVIC ORGANS: The prostate is diffusely enlarged. The seminal vesicles are symmetric. AORTA: There is calcific atherosclerotic disease of the abdominal aorta and its branches, without aneurysmal dilatation IVC: Unremarkable LYMPH NODES: There is no lymphadenopathy by size criteria within the visualized abdomen and pelvis. ABDOMINAL WALL: There is a fat-containing left inguinal hernia. BONES AND SOFT TISSUES: Degenerative changes are noted of the spine. OTHER: None IMPRESSION: 1. AGAIN NOTED IS ARE MULTIPLE PLEURAL NODULES WITH A RIGHT PLEURAL EFFUSION CONSISTENT WITH PLEURAL-BASED METASTATIC DISEASE. 2. THERE ARE LOW-ATTENUATION HEPATIC PARENCHYMAL LESIONS. LARGEST IS CONSISTENT WITH A SIMPLE CYST. THERE IS A 2 SMALL TO DEFINITIVELY CHARACTERIZE BUT ARE ALSO SUGGESTIVE OF CYSTS. 3. DIVERTICULOSIS. 4. ATHEROSCLEROSIS. 5. FAT-CONTAINING LEFT INGUINAL HERNIA. 6. THERE IS NO LYMPHADENOPATHY BY SIZE CRITERIA WITHIN THE VISUALIZED ABDOMEN AND PELVIS
[2016-11-03] MEDS: NS 0.9% 1000 ML* 1,000 ML IV SCH (19:11)
--- NOTE | 2016-11-03 20:09 | HP ---
HISTORY AND PHYSICAL: DATE OF ADMISSION: 11/03/16 PRIMARY CARE PROVIDER: Dr. Mckeon. SMOKING PIPE REPAIRER: Dr. Major. HEALTHCARE PROXY: Son. CODE STATUS: Full. SOURCE OF INFORMATION: History obtained from interview with the patient, his son, review of past medical records. RELIABILITY: Good. CHIEF COMPLAINT: Dyspnea on exertion. HISTORY OF PRESENT ILLNESS: This is an 81-year-old man, past medical history of bladder cancer in 2007, status post two resections and COPD, whose symptoms were started in July with an upper respiratory tract infection, was treated for URI symptoms in August with antibiotics, felt like he improved until he ultimately presented to [facility], on September 30, was hospitalized until the , diagnosed with parapneumonic effusion, status post thoracentesis performed by Dr. Major. He was treated for pneumonia as well as given steroids for potential COPD exacerbation and improvement in his shortness of breath. Cultures remain negative. His breathing had improved on steroids and with thoracentesis for several days, however, started developing increased dyspnea on exertion again. Followed up with Dr. Major, had a repeat thoracentesis which they are only able to obtain 40 cc of fluid which was sent for cytology at the end of September and was negative for malignant cells. However, the patient continued to have increasing dyspnea on exertion, can only walk about 20 feet now around his apartment to the bathroom before becoming short of breath. Additionally, he has noted increasing fatigue, chills, night sweats, occasional blurry vision when reading, and associated cough, nonproductive of any phlegm. He notes early satiety with feeling like his chest is always full and he cannot eat, starting sometime in July, improved on his last hospital stay with antibiotics and steroids, but then has returned so that he has to force himself to eat anything. He was not previously oxygen dependent; however , has been on 2 L nasal cannula since his discharge from the hospital on the 05 of October. He notes that he has lost approximately 11 pounds in the last month. He was seen by his PCP today in the setting of continued increasing dyspnea on exertion with lack of any unifying diagnosis was referred to the emergency room. PAST MEDICAL HISTORY: Includes BPH; bladder cancer, status post resection x2 in 2007, what sounds to be BCG; peripheral vascular disease; COPD; hypothyroidism; history of appendectomy; cataract surgery; multiple basal cell carcinoma removed. MEDICATIONS: Include: 1. Multivitamin 1 tab daily. 2. Synthroid 50 mcg every other day. 3. Ipratropium 0.06% two sprays both nares every 4 hours as needed. 4. Fluticasone 50 mcg 1 spray both nares as needed. 5. Albuterol nebulizer 2.5 mg inhaled 4 times a day as needed for shortness of breath or wheeze. ALLERGIES: No known drug allergies. FAMILY HISTORY: Father with brain cancer. Mother with Alzheimer's disease in . SOCIAL HISTORY: -plpu-cbvj smoking, quit in 1987. Rare alcohol. Lives with his son. REVIEW OF SYSTEMS: As per HPI including recent dyspnea on exertion, cough, chills, night sweats, no fevers, weight loss, early satiety, otherwise all other systems reviewed, negative. PHYSICAL EXAMINATION GENERAL: Elderly man, interactive, talks in complete sentences, in no apparent distress. VITAL SIGNS: 111/71, heart rate 88, T-max in the emergency room 98.6, he is 94 % on 3 L nasal cannula. HEENT: Oropharynx is clear. Has moist mucous membranes. Sclerae anicteric, has nonelevated JVD. No cervical or supraclavicular lymphadenopathy. LUNGS: Clear with decreased breath sounds in the right base, up approximately one- third with dullness to percussion upon right side, one third of the way. HEART: Regular rate and rhythm without murmurs, rubs, or gallops. ABDOMEN: Soft, nontender, nondistended. EXTREMITIES: Warm and well perfused. He has trace lower extremity edema. He is alert and oriented x3. His cranial nerves II through XII are intact. Strength grossly intact. Gait not assessed. DIAGNOSTIC STUDIES/LAB DATA: Labs reviewed: White blood cell count of 11.1, 64% neutrophils, hemoglobin of 11, platelets 350. INR of 1.2. Sodium 131, BUN 13, creatinine 0.81, glucose 116. Troponin I 0.07, was 0.06 on last hospital stay. Data reviewed: Chest and thorax CTA, impression: No evidence of pulmonary embolism. No aortic dissection. There is a mass in the right middle lobe that has a thick rim and is poorly enhancing with adjacent atelectasis which has increased in size since September 30 of this year. That is suspicious for neoplastic process. Additionally, pleural based lesions are noted in the anterior pleura, right lateral pleura, and right posterior medial pleura, as well as the right apex, suspicious for pleural studding and/or metastasis. ASSESSMENT AND PLAN: This is an 81-year-old gentleman with several months of shortness of breath, returning to the hospital with increasing dyspnea on exertion, recurrent right-sided pleural effusion and CAT scan concerning for primary lung cancer versus metastatic cancer to the lungs. 1. Shortness of breath - associated with hypoxic respiratory failure. Potentially, the patient has advanced chronic obstructive pulmonary disease, has poor reserve in the setting of pleural effusion and/or neoplastic process. Doubt pneumonia at this time in the absence of fevers, leukocytosis, or overt consolidation. At this time, the patient is stable, hold on immediate thoracentesis and plan to work up masses concerning for neoplastic processes first. Hold on steroids without evidence of chronic obstructive pulmonary disease exacerbation. 2. Concern for neoplastic process. Last colonoscopy was greater than 10 years ago, approximately 11 years prior. I will check PSA. Check brain CT with and without contrast. Check CT abdomen and pelvis for other sources, particularly stomach. If any evidence of gastric involvement, can consider EGD. Otherwise, we will plan on CT-guided biopsy of peripheral lesions on lungs. Make him p.o. after midnight. 3. Chronic obstructive pulmonary disease. I do not think this represents an exacerbation. Continue albuterol. Started on Dulera. He is on no controller medications. 4. Elevated troponin, was up to 0.07 on previous hospital stay as well. Doubt acute coronary syndrome. __Trops___ trending. 5. DVT prophylaxis. Heparin subcu. CC: Dr. Mckeon; Dr. Major * [id number]/[facility] #: [id number] [facility]
[2016-11-03] MEDS: Mometasone/Formoter 200/5 MDI INH SCH (20:53)
[2016-11-03] MEDS: Heparin VIAL(*) 5000 UNITS/ML VIAL (FIVE THOUSAND) SUBCUT SCH (22:22)
[2016-11-04] MEDS: NS 0.9% 1000 ML* 1,000 ML IV SCH (05:38)
[2016-11-04] MEDS: Heparin VIAL(*) 5000 UNITS/ML VIAL (FIVE THOUSAND) SUBCUT SCH (05:38)
[2016-11-04 06:05] LABS: Hematocrit 32 % (42-52); Hemoglobin 10.5 g/dl (14.0-18.0); Mean Corpuscular HGB Conc 33 g/dl (31-36); Mean Corpuscular Hemoglobin 30 pg (27-31); Mean Corpuscular Volume 91 fL (80-94); Mean Platelet Volume 7 um3 (7.4-10.4); Red Blood Count 3.49 10^6/ul (4.0-5.4); Red Cell Distribution Width 14 % (10.5-15); White Blood Count 8.4 10^3/ul (3.5-10.8)
[2016-11-04 06:25] LABS: BUN/Creatinine Ratio 11.4 (8-20); EGFR African American 139.2 (>60); EGFR Non-African American 108.2 (>60); Potassium 3.7 mmol/L (3.5-5.0)
[2016-11-04] MEDS: Mometasone/Formoter 200/5 MDI INH SCH ×2 (09:29→22:26)
[2016-11-04] MEDS: Multivitamins/Minerals TAB PO SCH (09:59)
[2016-11-04] MEDS ORDERED: fentaNYL* 50 MCG/ML 2 ML VIAL (100 MCG VIAL) ONE (14:19)
[2016-11-04] MEDS ORDERED: Iohexol 300* (CONTRAST) 10 ML SDV IV ONE (15:45)
--- NOTE | 2016-11-04 16:06 | RAD ---
HISTORY: Cancer, rule out metastatic disease COMPARISONS: Brain MRI dated January 30, 2006 TECHNIQUE: Multiple contiguous axial CT scans were obtained of the head with and without intravenous contrast. FINDINGS: HEMORRHAGE/INFARCT: There is no hemorrhage or acute infarct. MASSES/SHIFT: There is no mass or shift. EXTRA-AXIAL SPACES: There are no extra-axial fluid collections. SULCI AND VENTRICLES: There is diffuse and proportional enlargement of the sulci and ventricles. CEREBRUM: There is mild hypoattenuation of the periventricular and subcortical white matter. BRAINSTEM: There are no focal parenchymal abnormalities. CEREBELLUM: There are no focal parenchymal abnormalities. VESSELS: The vessels are grossly normal. PARANASAL SINUSES: The paranasal sinuses are clear. ORBITS: The orbits are unremarkable. BONES AND SOFT TISSUE: No bone or soft tissue abnormalities are noted. OTHER: There is no abnormal enhancement IMPRESSION: 1. NO ACUTE INTRACRANIAL PATHOLOGY. 2. DIFFUSE INVOLUTIONAL CHANGE WITH CHRONIC SMALL VESSEL ISCHEMIC CHANGES. 3. NO ABNORMAL ENHANCEMENT, SPACE-OCCUPYING LESION, OR VASOGENIC EDEMA TO SUGGEST METASTATIC DISEASE TO THE BRAIN
--- NOTE | 2016-11-04 16:07 | PN ---
Subjective Date of Service: 11/04/16 Interval History: Seen and examined prior to biopsy today Feels SOB when walking to bathroom but when at rest rare cough, non productive Objective Active Medications: Albuterol/Ipratropium (Duoneb Neb.Leila*) 1 neb INH Q6H PRN PRN Reason: sob/wheexing Fluticasone Propionate (Flonase Nasal [place] 50mcg*) 1 spray BOTH NARES DAILY PRN PRN Reason: CONGESTION Sodium Chloride (Ns 0.9% 1000 Ml*) 1,000 mls @ 100 mls/hr IV PER RATE [facility] Stop: 11/05/16 03:44 Last Admin: 11/04/16 05:38 Dose: 100 mls/hr Levothyroxine Sodium (Synthroid Tab*) 50 mcg PO EVERY OTHER DAY@0600 [facility] Mometasone Furoate/Formoterol Fumar (Dulera 200/5 Mdi*) 2 puff INH BID [facility] Last Admin: 11/04/16 09:29 Dose: 2 puff Multivitamins/Minerals (Theragran/Minerals Tab*) 1 tab PO DAILY [facility] Last Admin: 11/04/16 09:59 Dose: 1 tab Vital Signs 11/03/16 11/03/16 11/03/16 17:27 17:30 19:00 Temperature 98.0 F Pulse Rate 82 82 94 Respiratory 20 20 Rate Blood Pressure 119/72 121/71 154/60 (mmHg) O2 Sat by Pulse 91 90 93 Oximetry 11/03/16 11/03/16 11/04/16 19:03 22:24 00:39 Temperature 98 F Pulse Rate 94 Respiratory 20 20 Rate Blood Pressure 154/60 106/50 (mmHg) O2 Sat by Pulse 93 Oximetry 11/04/16 11/04/16 11/04/16 01:00 05:20 07:32 Temperature 98.1 F 98.4 F 98.4 F Pulse Rate 97 95 92 Respiratory 22 24 20 Rate Blood Pressure 98/48 114/59 125/62 (mmHg) O2 Sat by Pulse 93 89 91 Oximetry 11/04/16 11/04/16 08:00 09:32 Temperature Pulse Rate 20 Respiratory 20 70 Rate Blood Pressure (mmHg) O2 Sat by Pulse 90 Oximetry Oxygen Devices in Use Now: Nasal Cannula Appearance: NAD Eyes: No Scleral Icterus, PERRLA Ears/Nose/Mouth/Throat: Clear Oropharnyx, Mucous Membranes Moist Neck: NL Appearance and Movements; NL JVP, Trachea Midline Respiratory: Symmetrical Chest Expansion and Respiratory Effort, - - decreased right base up 1/3 Cardiovascular: RRR Abdominal: NL Sounds; No Tenderness; No Distention, No Hepatosplenomegaly Extremities: No Edema Skin: No Rash or Ulcers Neurological: Alert and Oriented x 3 Result Diagrams: 11/04/16 05:35 11/04/16 05:35 Additional Lab and Data: Lab Results 11/03/16 11/03/16 11/03/16 Range/Units 13:52 13:52 13:52 WBC 11.1 H (3.5-10.8) 10^3/ul RBC 3.74 L (4.0-5.4) 10^6/ul Hgb 11.1 L (14.0-18.0) g/dl Hct 34 L (42-52) % MCV 91 (80-94) fL MCH 30 (27-31) pg MCHC 33 (31-36) g/dl RDW 14 (10.5-15) % Plt Count 350 (150-450) 10^3/ul MPV 7 L (7.4-10.4) um3 Neut % (Auto) 64.7 (38-83) % Lymph % (Auto) 25.1 (25-47) % [place] % (Auto) 9.1 H (1-9) % Eos % (Auto) 0.3 (0-6) % Baso % (Auto) 0.8 (0-2) % Absolute Neuts (auto) 7.2 (1.5-7.7) 10^3/ul Absolute Lymphs (auto) 2.8 (1.0-4.8) 10^3/ul Absolute Monos (auto) 1.0 H (0-0.8) 10^3/ul Absolute Eos (auto) 0 (0-0.6) 10^3/ul Absolute Basos (auto) 0.1 (0-0.2) 10^3/ul Absolute Nucleated RBC 0 10^3/ul Nucleated RBC % 0 INR (Anticoag Therapy) (0.89-1.11) Sodium 131 L (133-145) mmol/L Potassium TNP Chloride 97 L (101-111) mmol/L Carbon Dioxide 27 (22-32) mmol/L Anion Gap TNP BUN 13 (6-24) mg/dL Creatinine 0.81 (0.67-1.17) mg/dL Est GFR ( Amer) 117.6 (>60) Est GFR (Non-Af Amer) 91.5 (>60) BUN/Creatinine Ratio 16.0 (8-20) Glucose 116 H (70-100) mg/dL Lactic Acid 1.2 (0.5-2.0) mmol/L Calcium 8.9 (8.6-10.3) mg/dL Total Bilirubin 0.60 (0.2-1.0) mg/dL AST TNP ALT 44 (7-52) U/L Alkaline Phosphatase 69 (34-104) U/L Troponin I 0.07 H* (<0.04) ng/mL B-Natriuretic Peptide ( - 100) pg/mL Total Protein 7.0 (6.4-8.9) g/dL Albumin 2.9 L (3.2-5.2) g/dL Globulin 4.1 H (2-4) g/dL Albumin/Globulin Ratio 0.7 L (1-3) 11/03/16 11/03/16 11/03/16 Range/Units 13:52 13:52 15:15 WBC (3.5-10.8) 10^3/ul RBC (4.0-5.4) 10^6/ul Hgb (14.0-18.0) g/dl Hct (42-52) % MCV (80-94) fL MCH (27-31) pg MCHC (31-36) g/dl RDW (10.5-15) % Plt Count (150-450) 10^3/ul MPV (7.4-10.4) um3 Neut % (Auto) (38-83) % Lymph % (Auto) (25-47) % [place] % (Auto) (1-9) % Eos % (Auto) (0-6) % Baso % (Auto) (0-2) % Absolute Neuts (auto) (1.5-7.7) 10^3/ul Absolute Lymphs (auto) (1.0-4.8) 10^3/ul Absolute Monos (auto) (0-0.8) 10^3/ul Absolute Eos (auto) (0-0.6) 10^3/ul Absolute Basos (auto) (0-0.2) 10^3/ul Absolute Nucleated RBC 10^3/ul Nucleated RBC % INR (Anticoag Therapy) 1.21 H (0.89-1.11) Sodium (133-145) mmol/L Potassium 3.8 Chloride (101-111) mmol/L Carbon Dioxide (22-32) mmol/L Anion Gap BUN (6-24) mg/dL Creatinine (0.67-1.17) mg/dL Est GFR ( Amer) (>60) Est GFR (Non-Af Amer) (>60) BUN/Creatinine Ratio (8-20) Glucose (70-100) mg/dL Lactic Acid (0.5-2.0) mmol/L Calcium (8.6-10.3) mg/dL Total Bilirubin (0.2-1.0) mg/dL AST 49 H ALT (7-52) U/L Alkaline Phosphatase (34-104) U/L Troponin I (<0.04) ng/mL B-Natriuretic Peptide 24 ( - 100) pg/mL Total Protein (6.4-8.9) g/dL Albumin (3.2-5.2) g/dL Globulin (2-4) g/dL Albumin/Globulin Ratio (1-3) Microbiology and Other Data: Microbiology 11/03/16 19:20 Nasal Screen MRSA (PCR)(ALEJANDRO) - Final Nasal Mrsa Positive Assess/Plan/Problems-Billing Assessment: 81 yo M recent admit with parapneumonic effusion returning with worsening TAY found with abnormal lung CT concerning for primary v metastatic carcinoma - Patient Problems (1) Dyspnea on effort Comment: Unclear if this is 2/2 newly found lung pathology or part of his underlying paranchymal dz Do not think he is in COPD exacerbation but will start steroids because noted on last admission pt's dypnea failed to improve until steroids started (2) Lung mass Comment: Concern for malignancy s/p lung biopsy 11/[address] Mejia (3) COPD (chronic obstructive pulmonary disease) Comment: Denise and christiane PRN (4) DVT prophylaxis Comment: SCDs s/p lung biopsy today
--- NOTE | 2016-11-04 16:33 | RAD ---
INDICATION: Chest wall mass. COMPARISON: Same day ultrasound of the chest for the purpose of biopsy planning and CTA of the chest November 03, 2016. PROCEDURE NOTE AND IMAGING FINDINGS: Prior to the procedure portable ultrasound images of the right chest wall were acquired to determine the feasibility of ultrasound-guided percutaneous biopsy of chest wall mass is identified on the recent CT of the chest. This imaging revealed at least 2 right lateral chest wall masses that corresponded to the recent CT imaging. The benefits and risks of procedure explained to the patient and the patient signed informed consent. Multiple images of the right lateral chest wall were obtained. The mass in question was identified and a percutaneous tract was determined. A time out was performed before beginning the procedure. The patient was prepped and draped in the usual sterile fashion. The skin and tissue overlying the lymph node were anesthetized with 1% lidocaine. Percutaneously, a fine needle aspiration was obtained and provided to the attending cytopathologist. The cytopathologist indicated that preliminary evaluation demonstrated adequate sampling for diagnosis. According to the same technique as above additional fine-needle aspirations were acquired to assure adequate diagnostic volume. The post procedure ultrasound demonstrates no evidence for hematoma, pneumothorax or other acute complication. The site was dressed with a sterile dressing. The patient tolerated procedure well without incident. IMPRESSION: Uncomplicated ultrasound-guided fine-needle aspiration of right lateral subpleural chest wall mass.
[2016-11-04] MEDS: predniSONE TAB* 50 MG PO SCH (17:04)
[2016-11-05] MEDS ORDERED: Levothyroxine TAB* 50 MCG TAB PO SCH (06:00)
[2016-11-05] MEDS: predniSONE TAB* 50 MG PO SCH (09:57)
[2016-11-05] MEDS: Multivitamins/Minerals TAB PO SCH (09:57)
[2016-11-05] MEDS: Mometasone/Formoter 200/5 MDI INH SCH ×2 (10:07→20:19)
--- NOTE | 2016-11-05 17:26 | PN ---
Subjective Date of Service: 11/05/16 Interval History: Feels breathing is improved but still worried about returning home Ambulated and required 4 L oxygen Minimal cough, chest discomfort on right chest wall resolved. Objective Active Medications: Albuterol/Ipratropium (Duoneb Neb.Leila*) 1 neb INH Q6H PRN PRN Reason: sob/wheexing Fluticasone Propionate (Flonase Nasal [place] 50mcg*) 1 spray BOTH NARES DAILY PRN PRN Reason: CONGESTION Levothyroxine Sodium (Synthroid Tab*) 50 mcg PO EVERY OTHER DAY@0600 [facility] Last Admin: 11/05/16 06:00 Dose: 50 mcg Mometasone Furoate/Formoterol Fumar (Dulera 200/5 Mdi*) 2 puff INH BID [facility] Last Admin: 11/05/16 10:07 Dose: 2 puff Multivitamins/Minerals (Theragran/Minerals Tab*) 1 tab PO DAILY [facility] Last Admin: 11/05/16 09:57 Dose: 1 tab Prednisone (Deltasone Tab*) 50 mg PO DAILY [facility] Last Admin: 11/05/16 09:57 Dose: 50 mg Vital Signs 11/04/16 11/05/16 11/05/16 20:00 01:17 08:00 Temperature 97.3 F Pulse Rate 81 Respiratory 16 20 14 Rate Blood Pressure 102/53 (mmHg) O2 Sat by Pulse 94 Oximetry 11/05/16 11/05/16 11/05/16 08:11 10:08 15:54 Temperature 97.1 F 96.5 F Pulse Rate 80 80 66 Respiratory 18 14 Rate Blood Pressure 98/48 105/60 (mmHg) O2 Sat by Pulse 96 98 95 Oximetry 11/05/16 17:12 Temperature Pulse Rate Respiratory 14 Rate Blood Pressure (mmHg) O2 Sat by Pulse Oximetry Oxygen Devices in Use Now: Nasal Cannula Appearance: NAD Eyes: No Scleral Icterus, PERRLA Ears/Nose/Mouth/Throat: NL Teeth, Lips, Gums, Clear Oropharnyx, Mucous Membranes Moist Neck: NL Appearance and Movements; NL JVP, Trachea Midline Respiratory: Symmetrical Chest Expansion and Respiratory Effort, Clear to Auscultation Cardiovascular: RRR Abdominal: NL Sounds; No Tenderness; No Distention, No Hepatosplenomegaly Lymphatic: No Cervical Adenopathy Extremities: No Edema Neurological: Alert and Oriented x 3 Result Diagrams: 11/04/16 05:35 11/04/16 05:35 Additional Lab and Data: Lab Results 11/03/16 11/03/16 11/03/16 Range/Units 13:52 13:52 13:52 WBC 11.1 H (3.5-10.8) 10^3/ul RBC 3.74 L (4.0-5.4) 10^6/ul Hgb 11.1 L (14.0-18.0) g/dl Hct 34 L (42-52) % MCV 91 (80-94) fL MCH 30 (27-31) pg MCHC 33 (31-36) g/dl RDW 14 (10.5-15) % Plt Count 350 (150-450) 10^3/ul MPV 7 L (7.4-10.4) um3 Neut % (Auto) 64.7 (38-83) % Lymph % (Auto) 25.1 (25-47) % [place] % (Auto) 9.1 H (1-9) % Eos % (Auto) 0.3 (0-6) % Baso % (Auto) 0.8 (0-2) % Absolute Neuts (auto) 7.2 (1.5-7.7) 10^3/ul Absolute Lymphs (auto) 2.8 (1.0-4.8) 10^3/ul Absolute Monos (auto) 1.0 H (0-0.8) 10^3/ul Absolute Eos (auto) 0 (0-0.6) 10^3/ul Absolute Basos (auto) 0.1 (0-0.2) 10^3/ul Absolute Nucleated RBC 0 10^3/ul Nucleated RBC % 0 INR (Anticoag Therapy) (0.89-1.11) Sodium 131 L (133-145) mmol/L Potassium TNP Chloride 97 L (101-111) mmol/L Carbon Dioxide 27 (22-32) mmol/L Anion Gap TNP BUN 13 (6-24) mg/dL Creatinine 0.81 (0.67-1.17) mg/dL Est GFR ( Amer) 117.6 (>60) Est GFR (Non-Af Amer) 91.5 (>60) BUN/Creatinine Ratio 16.0 (8-20) Glucose 116 H (70-100) mg/dL Lactic Acid 1.2 (0.5-2.0) mmol/L Calcium 8.9 (8.6-10.3) mg/dL Total Bilirubin 0.60 (0.2-1.0) mg/dL AST TNP ALT 44 (7-52) U/L Alkaline Phosphatase 69 (34-104) U/L Troponin I 0.07 H* (<0.04) ng/mL B-Natriuretic Peptide ( - 100) pg/mL Total Protein 7.0 (6.4-8.9) g/dL Albumin 2.9 L (3.2-5.2) g/dL Globulin 4.1 H (2-4) g/dL Albumin/Globulin Ratio 0.7 L (1-3) 11/03/16 11/03/16 11/03/16 Range/Units 13:52 13:52 15:15 WBC (3.5-10.8) 10^3/ul RBC (4.0-5.4) 10^6/ul Hgb (14.0-18.0) g/dl Hct (42-52) % MCV (80-94) fL MCH (27-31) pg MCHC (31-36) g/dl RDW (10.5-15) % Plt Count (150-450) 10^3/ul MPV (7.4-10.4) um3 Neut % (Auto) (38-83) % Lymph % (Auto) (25-47) % [place] % (Auto) (1-9) % Eos % (Auto) (0-6) % Baso % (Auto) (0-2) % Absolute Neuts (auto) (1.5-7.7) 10^3/ul Absolute Lymphs (auto) (1.0-4.8) 10^3/ul Absolute Monos (auto) (0-0.8) 10^3/ul Absolute Eos (auto) (0-0.6) 10^3/ul Absolute Basos (auto) (0-0.2) 10^3/ul Absolute Nucleated RBC 10^3/ul Nucleated RBC % INR (Anticoag Therapy) 1.21 H (0.89-1.11) Sodium (133-145) mmol/L Potassium 3.8 Chloride (101-111) mmol/L Carbon Dioxide (22-32) mmol/L Anion Gap BUN (6-24) mg/dL Creatinine (0.67-1.17) mg/dL Est GFR ( Amer) (>60) Est GFR (Non-Af Amer) (>60) BUN/Creatinine Ratio (8-20) Glucose (70-100) mg/dL Lactic Acid (0.5-2.0) mmol/L Calcium (8.6-10.3) mg/dL Total Bilirubin (0.2-1.0) mg/dL AST 49 H ALT (7-52) U/L Alkaline Phosphatase (34-104) U/L Troponin I (<0.04) ng/mL B-Natriuretic Peptide 24 ( - 100) pg/mL Total Protein (6.4-8.9) g/dL Albumin (3.2-5.2) g/dL Globulin (2-4) g/dL Albumin/Globulin Ratio (1-3) Microbiology and Other Data: Microbiology 11/03/16 19:20 Nasal Screen MRSA (PCR)(ALEJANDRO) - Final Nasal Mrsa Positive Assess/Plan/Problems-Billing Assessment: 81 yo M recent admit with parapneumonic effusion returning with worsening TAY found with abnormal lung CT concerning for primary v metastatic carcinoma - Patient Problems (1) Dyspnea on effort Comment: Unclear if this is 2/2 to newly found lung pathology or part of his underlying paranchymal dz Do not think he is in COPD exacerbation but will start steroids because noted on last admission pt's dypnea failed to improve until steroids started Will require higher flow oxygen on d/c (2) Lung mass Comment: Lung tumor with c/f malignancy s/p lung biopsy 11/[address] Mejia path pending f/u made with Dr. Melvin for 11/13 at 1:00pm on discharge (3) COPD (chronic obstructive pulmonary disease) Comment: Denise and christiane PRN (4) DVT prophylaxis Comment: SCDs s/p lung biopsy
[2016-11-06] MEDS: Mometasone/Formoter 200/5 MDI INH SCH (07:48)
[2016-11-06] MEDS: Multivitamins/Minerals TAB PO SCH (10:16)
[2016-11-06] MEDS: predniSONE TAB* 50 MG PO SCH (10:16)
[2016-11-06 10:47] VITALS: BP 104/58
--- NOTE | 2016-11-06 21:51 | DS ---
DISCHARGE SUMMARY: DATE OF ADMISSION: 11/03/16 DATE OF DISCHARGE: 11/06/16 PRIMARY CARE PROVIDER: Dr. Mckeon. BUNCH TRIMMER MOLD: Dr. Major. ONCOLOGIST: Dr. Kelsey Melvin. PRIMARY DIAGNOSES: 1. Dyspnea on exertion. 2. Pleural nodules concerning for primary versus pleural-based metastatic disease. SECONDARY DIAGNOSES: Include: 1. History of bladder cancer. 2. Chronic obstructive pulmonary disease. 3. Hypothyroidism. MEDICATIONS ON DISCHARGE: Include: 1. Ipratropium bromide nasal spray, 2 sprays both nares 4 times a day as needed. 2. Albuterol nebulizer 4 times a day as needed for shortness of breath or wheeze. 3. Flonase 1 spray both nares daily as needed. 4. Multivitamin 1 tab daily. 5. Levothyroxine 50 mcg every other day. 6. Prednisone taper 60 mg for 4 days, then 40 mg for 4 days, then 20 mg for 4 days, and stop. 7. Dulera 200/5 MDI two puffs inhaled twice daily. All new medications sent to [facility]. Discussed steroid taper with the patient. PERTINENT PROCEDURES PERFORMED DURING HOSPITAL STAY: Ultrasound-guided biopsy of right pleural-based tumor, impression: Uncomplicated ultrasound-guided fine needle aspiration of the right lateral subpleural chest wall mass performed by Dr. Mejia, 11/04/16. PERTINENT IMAGING PERFORMED DURING HOSPITAL STAY: Chest and thorax CTA, impression: No evidence of pulmonary embolism. No aortic dissection. There is a mass in the right middle lobe that has a thick rim and is poorly enhancing with adjacent atelectasis which has increased in size since 09/30/16. This is suspicious for neoplastic process. Additionally, pleural-based lesions are noted in the anterior pleura, right lateral pleura, and right posterior medial pleura as well as the right apex suspicious for pleural studding and/or metastasis. Results have been discussed with the patient. PERTINENT LABORATORY DATA: PSA 6.4. No prior for comparison. HISTORY OF PRESENT ILLNESS AND HOSPITAL COURSE: This is an 81-year-old male with a past medical history as outlined in the history of present illness on the day of admission including history of bladder cancer in 2007, status post 2 resections and what sounds to be BCG instillation, history of COPD, who presents to the hospital on September 30 and was treated with thoracentesis for parapneumonic effusion as well as antibiotics. He was followed up with Dr. Major as an outpatient, had repeat thoracentesis with cytology sent that returned negative for neoplastic cells. However, he developed increasing dyspnea on exertion as well as increasing anorexia and early satiety. He presented back to the hospital secondary to his increasing dyspnea on exertion, was found with new parenchymal-based as well as pleural-based tumors as indicated above on CAT scan. He was admitted to the hospital, underwent an ultrasound guided biopsy by Dr. Mejia. His dyspnea continued and he was started on steroids with improvement in his shortness of breath. This author noted previous records that indicated his last hospital stay did not improve until the initiation of steroids. On the day of the discharge, he was ambulating from the bathroom without distress. He does remain focused on his concern for increased return of increasing dyspnea on exertion on discharge. Significant amount of time was devoted to discussing the patient's diagnosis and unclear prognosis at this time. I discussed that this may in fact get worse on discharge depending on what the final pathology is and what the ultimate treatment is. He remains fixated on the potential that his breathing may get worse and seems to have difficulty grasping the underlying severity of multiple pleural- and parenchymal-based tumors in his lungs. At this time, he is to follow up tomorrow with Dr. Mckeon as well followup established by this author with Dr. Melvin as well as follow up with Dr. Major at the end of this month which he had already arranged after his previous hospital stay. He will be discharged on a steroid taper given his improvement on dyspnea on exertion with its initiation. DISCHARGE INSTRUCTIONS: At followup, please: 1. Please follow up pathology from biopsy of lung tumor. 2. Please evaluate for need of lengthening steroid taper. 3. No other specific labs or vitals that need followup. Reasons to return to the hospital include but not limited to recurrent or worsening symptoms, difficulty breathing, chest pain, lightheadedness, loss of consciousness, near loss of consciousness, bleeding from any source, high fevers , chills, or night sweats, inability to obtain or tolerate his medications were discussed with the patient. He acknowledged understanding. TIME SPENT: Greater than 45 minutes was spent on the discharge of the patient; greater than half was [id number] with the patient. CC: Dr. Mckeon; Dr. Major; Dr. Kelsey Melvin * [id number]/[facility] #: [id number] MATILDE
== END 2016-11-06 12:15 | disposition home or self-care (01) | DRG 180 ==
LOC: ED 12:28 → MED 17:16
PROVIDERS: ADMIT Internal Medicine; ATTEND Internal Medicine
PROC: 0BBK3ZX Excision of Right Lung, Percutaneous Approach, Diagnostic (ICD-10-PCS; principal; 2016-11-03)
DX: C38.4 Malignant neoplasm of pleura (principal); J96.01 Acute respiratory failure with hypoxia; J44.9 Chronic obstructive pulmonary disease, unspecified; J90 Pleural effusion, not elsewhere classified; C34.32 Malignant neoplasm of lower lobe, left bronchus or lung; Z87.891 Personal history of nicotine dependence; E03.9 Hypothyroidism, unspecified; Z85.51 Personal history of malignant neoplasm of bladder; Z98.42 Cataract extraction status, left eye; Z98.41 Cataract extraction status, right eye; N40.0 Benign prostatic hyperplasia without lower urinary tract symptoms; I73.9 Peripheral vascular disease, unspecified; Z80.8 Family history of malignant neoplasm of other organs or systems; Z81.8 Family history of other mental and behavioral disorders; R79.89 Other specified abnormal findings of blood chemistry
CPT/HCPCS: 36415; 70470; 71010; 71275; 74177; 76604; 76942; 80048; 80053; 83605; 83880; 84153; 84484; 85025; 85610; 87040; 87641; 88172; 88173; 88305; 88341; 88342; 93005; 94640; 94760; A9270-GY; G0103; J1644; J3010; J7512; Q9967

== ENCOUNTER → 2016-11-20 10:49 | Day surgery (SDC) | payer MEDICARE ==
[~2016-11-20 10:49] MED LIST: Buffered Lidocaine 1% SYR 3ML* 3 ML/SYR SYRINGE INTRADERM ONE; Clindamycin 900 MG IVPREMIX(* 900 MG/50 ML SDV IV ONE; Lidocaine 1% INJ* 10 MG/ML 30 ML SDV ONE; Lidocaine 2% PF * 5 ML VIAL ONE; Propofol* 10 MG/ML 20 ML BTL IV PUSH ONE; fentaNYL* 50 MCG/ML 2 ML VIAL (100 MCG VIAL) ONE
[2016-11-20 13:07] VITALS: BP 92/58
--- NOTE | 2016-11-20 13:13 | RAD ---
INDICATION: Status post Mediport placement COMPARISON: Chest x-ray dated November 13, 2016 TECHNIQUE: Single AP portable view of the chest was obtained. FINDINGS: There has been interval placement of a right upper chest subclavian vein Mediport with the tip terminating at the cavoatrial junction. There has been interval increase in the density obscuring the right lung base relative to the most recent chest x-ray. The left lung is adequately clear. There is no pneumothorax. IMPRESSION: Interval placement of right subclavian vein Mediport with interval worsening of density obscuring the right lung base presumably representing enlarging pleural effusion.
--- NOTE | 2016-11-20 13:13 | RAD ---
CPT II Codes: 6045F INDICATION: PowerPort insertion. Fluoroscopic services provided for referring physician. 6.7 seconds of fluoroscopy time was used. Single spot image demonstrates placement of a Port-A-Cath into the right atrium. No pneumothorax is noted. IMPRESSION: Fluoroscopic services provided for referring physician for PowerPort insertion.
--- NOTE | 2016-11-20 20:04 | OP ---
DATE OF OPERATION: 11/20/16 - [facility] DATE OF : 35 SURGEON: David Russo MD MANAGER OF RADIOLOGY: None. ANESTHESIOLOGIST: Dr. Joseph. ANESTHESIA: LMAC anesthesia. PRE-OP DIAGNOSIS: Carcinoma of the lung. POST-OP DIAGNOSIS: Carcinoma of the lung. OPERATIVE PROCEDURE: Placement of right subclavian 8-Vietnamese PowerPort. DESCRIPTION OF PROCEDURE: The patient was supine on the operative table after adequate intravenous sedation, compression stockings, Melissa Hugger warmer, and intravenous antibiotics; the right chest was prepped with anesthetic, draped in a sterile fashion. Local infiltrative anesthesia was administered. Approximately 3 cm incision was created, inferior pocket was created. Subclavian venipuncture was carried out. Guidewire was passed under fluoroscopic guidance without difficulty. Catheter was passed through the peel- away introducer, measured and cut at 22 cm. The port is secured into the pocket with 2-0 Prolene. The pocket was closed with 3-0 and 5-0 Polysorb followed by Steri-Strips. The port has good blood return. It was flushed with saline and heparinized solution, had good flow. He tolerated this well, was brought to Recovery in good condition. No complications. No drains. No pathologic specimens. Sponge and instrument counts correct. Estimated blood loss is less than 10 mL. CC: David Russo MD; Kelsey Melvin MD * [id number]/[facility] #: [id number] MTDD
== END | disposition home or self-care (01) ==
LOC: OR 10:49
PROVIDERS: ATTEND Surgery
DX: C34.81 Malignant neoplasm of overlapping sites of right bronchus and lung (principal); Z87.891 Personal history of nicotine dependence; J44.9 Chronic obstructive pulmonary disease, unspecified; E03.9 Hypothyroidism, unspecified
CPT/HCPCS: 71010; 76000; C1788; J1642; J2704; J3010

== ENCOUNTER 2017-02-03 10:09 | Inpatient (IN) | payer MEDICARE ==
[2017-02-03] MEDS ORDERED: NS 0.9% 1000 ML* 1,000 ML IV SCH (11:15)
[2017-02-03 11:56] LABS: Hematocrit 36 % (42-52); Hemoglobin 11.4 g/dl (14.0-18.0); Mean Corpuscular HGB Conc 31 g/dl (31-36); Mean Corpuscular Hemoglobin 28 pg (27-31); Mean Corpuscular Volume 89 fL (80-94); Mean Platelet Volume 7 um3 (7.4-10.4); Red Blood Count 4.06 10^6/ul (4.0-5.4); Red Cell Distribution Width 19 % (10.5-15); White Blood Count 23.6 10^3/ul (3.5-10.8)
[2017-02-03 12:06] LABS: Comments Flag Yes
[2017-02-03 12:07] LABS: Add Diff/Slide Review? Slide Review Added
[2017-02-03 12:09] LABS: ALT 10 U/L (7-52); AST 36 U/L (13-39); Albumin 2.6 g/dL (3.2-5.2); Alkaline Phosphatase 165 U/L (34-104); Anion Gap 11 mmol/L (2-11); BUN/Creatinine Ratio 33.3 (8-20); Blood Urea Nitrogen 29 mg/dL (6-24); C Reactive Protein 239.18 mg/L (< 5.00); CO2 Carbon Dioxide 28 mmol/L (22-32); Calcium 9.8 mg/dL (8.6-10.3); Chloride 92 mmol/L (101-111); Creatine Kinase 42 U/L (10-223); EGFR African American 108.3 (>60); EGFR Non-African American 84.2 (>60); Globulin 3.6 g/dL (2-4); Glucose 87 mg/dL (70-100); Lipase < 10 U/L (11.0-82.0); Magnesium 1.9 mg/dL (1.9-2.7); Potassium 5.1 mmol/L (3.5-5.0); Sodium 131 mmol/L (133-145); Total Protein 6.2 g/dL (6.4-8.9)
--- NOTE | 2017-02-03 12:09 | RAD ---
INDICATION: Weakness. COMPARISON: Correlation is made with a prior chest x-ray study from November 13, [address] angiogram of the chest from January 21, 2017. TECHNIQUE: A portable view of the chest was obtained. FINDINGS: There is a power port central venous catheter present. The heart is mildly enlarged and unchanged. There is nodular pleural thickening present throughout the right hemithorax which is progressed from the prior study. The lungs are underinflated. There are small infiltrates at both lung bases. IMPRESSION: 1. INTERVAL PROGRESSION OF NODULAR PLEURAL THICKENING PRESENT THROUGHOUT THE RIGHT HEMITHORAX. 2. EXPIRATORY EXAM, SMALL BIBASILAR INFILTRATES.
[2017-02-03 12:22] LABS: Troponin I 0.08 ng/mL (<0.04)
[2017-02-03 12:34] LABS: TSH (Thyroid Stimulating Horm) 5.44 mcIU/mL (0.34-5.60)
--- NOTE | 2017-02-03 12:46 | ED ---
Bobby Quinetro Erika, scribed for Aiyana Givens MD on 02/03/17 at 1217 . Dizziness - HPI Summary HPI Summary: Patient is an 81-year-old male presenting to the ED by EMS with a CC of lightheadedness and progressive weakness. . Patient presents with his son, who is his primary caregiver, who provides part of the history. Per son, patient was diagnosed with lung CA about 1 month ago and has been followed by Dr. Melvin. Cancer has not metastasized and pt is on oral chemotherapy treatment. Patient was also diagnosed with a fracture of the vertebra a few weeks ago, and was treated with oxycodone/acetaminophen and a muscle relaxer, which did not alleviate the pain. Yesterday, patient was seen by Dr. Melvin's office for pain management, and was given liquid morphine and Ativan. He states morphine has been slightly improving pain - most recent dose 09:00 today. Pt states he has progessively felt weak and lightheaded. Pt states feels like will "pass out " if he stands up. Pt unsure if sx are worse since taking morphine. Per son, pt is not notably different from baseline, as he usually needs help ambulating. Pt is unable to stand or ambulate without the help of his son. Son states is waking up every 2-3 hours requesting to get up but then reporting feels too weak to stand up. However, pt complained of lightheadedness today, and said he could not go to the bathroom due to the lightheadedness. Pt was scheduled for an oncology appt at noon but did not feel he could make it to the appointment and requested to come to the ED. His son called 911 instead of bringing patient in to Dr. Melvin's office. Pt also reports decreased PO intake for the past few weeks, and states N/V with PO intake. He notes diffuse abdominal pain intermittent and is unsure if he is constipated. Reports decreaesd BM, but also decreased PO. He reports a mild nonproductive cough. Pt is on 4L home O2, and does not use BiPAP or CPAP. Son reports that pt cannot have surgery because the surgeon does not believe pt would survive surgery. Son states at his appt yesterday for pain managment pt was told that "he is dying and that he may want to consider hospice." Pt reports he feels "too weak, I can't go home." Hx thyroid disease, chronic pedal edema. Pt denies Hx UT/CVA. Pt does not take ASA or another blood thinner. PSHx surgery for bladder CA in 2007. Pt lives with his son, quit smoking 20 years ago, and rarely drinks. Patient's medication reviewed this visit. - History Of Current Complaint Chief Complaint: EDDizziness Stated Complaint: LIGHT HEADED Time Seen by Provider: 02/03/17 12:01 Hx Obtained From: Patient, Family/Echocardiograph Tech - Son Timing: Constant Severity Initially: Moderate Severity Currently: Moderate Character: Lightheaded Aggravating Factor(s): Other - morphine Alleviating Factor(s): Nothing Associated Signs And Symptoms: Positive: Change In Medication, Inability to Walk - son states baseline - Allergies/Home Medications Allergies/Adverse Reactions: Allergies Allergy/AdvReac Type Severity Reaction Status Date / Time Amoxicillin Allergy Unknown Verified 01/21/17 11:38 Reaction Details PMH/Surg Hx/FS Hx/Imm Hx Previously Healthy: No Endocrine/Hematology History: Reports: Hx Thyroid Disease Denies: Hx Diabetes Cardiovascular History: Reports: Hx Congestive Heart Failure Denies: Hx Hypertension, Hx Pacemaker/ICD Respiratory History: Reports: Hx Chronic Obstructive Pulmonary Disease (COPD) - MILD, Hx Pneumonia, Other Respiratory Problems/Disorders - LUNG CA History: Reports: Hx Benign Prostatic Hyperplasia, Other Problems/ Disorders - Bladder surgery 2007 Denies: Hx Renal Disease Sensory History: Reports: Hx Cataracts, Hx Contacts or Glasses Denies: Hx Hearing Aid Opthamlomology History: Reports: Hx Cataracts, Hx Contacts or Glasses Psychiatric History: Denies: Hx Panic Disorder - Cancer History Cancer Type, Location and Year: bladder,lung Hx Chemotherapy: Yes - injected chemo into bladder 2007 Hx Radiation Therapy: No - Surgical History Surgery Procedure, Year, and Place: APPENDIX 1955. BLADDER CA 2007. CATARACTS with lens implants. BASAL CELL CA REMOVED FROM both eye lids and from other parts of body Hx Anesthesia Reactions: No - Immunization History Date of Tetanus Vaccine: up to date Date of Influenza Vaccine: up to date Infectious Disease History: Unable to Obtain/Confirm Infectious Disease History: Reports: Hx Hepatitis - 50 years ago Denies: Traveled Outside the [place] in Last 30 Days - Family History Known Family History: Negative: Cardiac Disease, Hypertension, Diabetes - Social History Occupation: Retired Lives: With Family Alcohol Use: Rare Alcohol Amount: 2 drinks per month Hx Substance Use: No Substance Use Type: Reports: None Hx Tobacco Use: Yes Smoking Status (MU): Former Smoker Type: Cigarettes Amount Used/How Often: 1 ppd Length of Time of Smoking/Using Tobacco: 40 years Have You Smoked in the Last Year: No Review of Systems Positive: Fatigue, Other - weakness, decreased appetite Eyes: Negative ENT: Negative Cardiovascular: Negative Positive: Shortness Of Breath, Cough Positive: Nausea, Other - decreased appetitis Genitourinary: Negative Musculoskeletal: Negative Skin: Negative Positive: Weakness Psychological: Normal All Other Systems Reviewed And Are Negative: Yes Physical Exam Triage Information Reviewed: Yes Vital Signs On Initial Exam: Initial Vitals Temp Pulse Resp Pulse Ox 98.6 F 110 24 100 02/03/17 10:13 02/03/17 10:13 02/03/17 10:13 02/03/17 10:13 Vital Signs Reviewed: Yes Appearance: Positive: Ill-Appearing - tired, weak appearing. Negative: Pain Distress Skin: Positive: Warm, Skin Color Reflects Adequate Perfusion, Dry Head/Face: Positive: Normal Head/Face Inspection Eyes: Positive: Normal, EOMI, BERTHA ENT: Positive: Other - mmdry, pasty Neck: Positive: Supple, Nontender, No Lymphadenopathy Respiratory/Lung Sounds: Positive: Other - decrease BS bases R>L No w/r No cough during exam Cardiovascular: Positive: RRR, Tachycardia. Negative: Murmur, Rub Abdomen Description: Positive: Nontender, No Organomegaly, Soft. Negative: Distended Bowel Sounds: Positive: Present Musculoskeletal: Positive: Edema Left, Edema Right Neurological: Positive: Normal, Alert, Oriented to Person Place, Time, Unable to Assess Gait Psychiatric: Positive: Affect/Mood Appropriate - quiet, tired appearing - [place] Coma Scale Best Eye Response: 4 - Spontaneous Best Motor Response: 6 - Obeys Commands Best Verbal Response: 5 - Oriented Coma Scale Total: 15 Diagnostics - Vital Signs Vital Signs Temp Pulse Resp BP Pulse Ox 02/03/17 10:18 98.6 F 109 24 104/43 100 02/03/17 10:13 98.6 F 110 24 100 - Laboratory Lab Results: Lab Results 02/03/17 Range/Units 11:40 WBC 23.6 H (3.5-10.8) 10^3/ul RBC 4.06 (4.0-5.4) 10^6/ul Hgb 11.4 L (14.0-18.0) g/dl Hct 36 L (42-52) % MCV 89 (80-94) fL MCH 28 (27-31) pg MCHC 31 (31-36) g/dl RDW 19 H (10.5-15) % Plt Count 276 (150-450) 10^3/ul MPV 7 L (7.4-10.4) um3 Neut % (Auto) 91.3 H (38-83) % Lymph % (Auto) 4.9 L (25-47) % [place] % (Auto) 3.4 (1-9) % Eos % (Auto) 0 (0-6) % Baso % (Auto) 0.4 (0-2) % Absolute Neuts (auto) 21.5 H (1.5-7.7) 10^3/ul Absolute Lymphs (auto) 1.2 (1.0-4.8) 10^3/ul Absolute Monos (auto) 0.8 (0-0.8) 10^3/ul Absolute Eos (auto) 0 (0-0.6) 10^3/ul Absolute Basos (auto) 0.1 (0-0.2) 10^3/ul Absolute Nucleated RBC 0.01 10^3/ul Nucleated RBC % 0 Result Diagrams: 02/03/17 11:40 02/03/17 11:40 Lab Statement: Any lab studies that have been ordered have been reviewed, and results considered in the medical decision making process. - Radiology CXR Radiology Interpretation Completed By: Radiologist - IMPRESSION: 1. INTERVAL PROGRESSION OF NODULAR PLEURAL THICKENING PRESENT THROUGHOUT THE RIGHT HEMITHORAX. 2. EXPIRATORY EXAM, SMALL BIBASILAR INFILTRATES. - EKG 10:13 Cardiac Rate: Tachycardia - borderline at 108 bpm EKG Rhythm: Sinus Tachycardia EKG Interpretation: No acute changes. Underlying tremor Re-Evaluation - Re-Evaluation First Eval Comment: d/w pt - spoke to Dr. Francis. will admit. Will give ASA and fentanyl. urine pending. Will be admitted. Pt and son comfortable and in agreeement with plan Dizzy Course/Dx - Course Assessment/Plan: Pt presents by EMS with his son who is his primary care give. Pt reports progressive weakness and lightheadedness. Pt also with poorly controlled pain second to "fractured vertebrae.". Pt reports mild cough, intermittent nausea, and decreased appetite. No falls or new injury. Will check labs, EKG. IVF. urine. will d/w oncology for admission, ? hospice consult. Pt and son in agreement with plan - Diagnoses Provider Diagnoses: Weakness, Elevated troponin, Hyperkalemia - Provider Notifications Discussed Care Of Patient with: Dr. Francis (oncology) at 12:55 - discussed plan of care Time Discussed With Above Provider: 12:58 - Dr. Francis - will admit -okay with plan for fentanyl ASA Instructed by Provider To: Admit As Inpatient Discharge - Discharge Plan Condition: Guarded Disposition: ADMITTED TO [facility] The documentation as recorded by the Bobby sneed Erika accurately reflects the service I personally performed and the decisions made by , Aiyana Givens MD.
[2017-02-03] MEDS ORDERED: fentaNYL* 50 MCG/ML 2 ML VIAL (100 MCG VIAL) IV SLOW PU ONE (13:02)
[2017-02-03] MEDS ORDERED: Aspirin Low Dose CHEW TAB* 81 MG PO ONE (13:02)
[2017-02-03 13:15] LABS: Urine Bilirubin Negative (Negative); Urine Glucose Negative (Negative); Urine Nitrite Negative (Negative)
[2017-02-03] MEDS ORDERED: fentaNYL* 50 MCG/ML 2 ML VIAL (100 MCG VIAL) ONE (13:50)
[2017-02-03] MEDS ORDERED: Aspirin EC Low Dose* 81 MG TAB.EC ONE (13:51)
[2017-02-03] MEDS ORDERED: LORazepam TAB(*) 0.5 MG PO PRN (14:04)
[2017-02-03] MEDS ORDERED: Morphine ORAL CONCENTRATE* 5 MG/0.25 ML ORAL.SYRIN PO PRN (14:04)
[2017-02-03] MEDS ORDERED: Cyclobenzaprine TAB* 10 MG PO PRN (14:04)
[2017-02-03] MEDS ORDERED: Ondansetron TAB* 4 MG PO PRN (14:04)
[2017-02-03] MEDS ORDERED: Ondansetron INJ* 2 MG/ML VIAL IV PRN (14:18)
[2017-02-03] MEDS ORDERED: Acetaminophen TAB* 325 MG PO PRN (14:18)
[2017-02-03] MEDS ORDERED: Morphine INJ* 10 MG/ML 1 ML SYRINGE IV PRN (14:18)
[2017-02-03] MEDS: Heparin VIAL(*) 5000 UNITS/ML VIAL (FIVE THOUSAND) SUBCUT SCH ×2 (17:40→20:53)
[2017-02-03] MEDS: NS 0.9% 1000 ML* 1,000 ML IV SCH (18:04)
[2017-02-03] MEDS: Morphine ORAL CONCENTRATE* 5 MG/0.25 ML ORAL.SYRIN PO PRN ×2 (18:04→19:48)
[2017-02-03 19:00] LABS: Albumin 2.3 g/dL (3.2-5.2); BUN/Creatinine Ratio 35.6 (8-20); Calcium 9.2 mg/dL (8.6-10.3); EGFR African American 132.6 (>60); EGFR Non-African American 103.1 (>60); Globulin 3.2 g/dL (2-4); Potassium 4.9 mmol/L (3.5-5.0); Total Bilirubin 0.6 mg/dL (0.2-1.0); Total Protein 5.5 g/dL (6.4-8.9)
[2017-02-03 20:29] LABS: Hematocrit 34 % (42-52); Hemoglobin 10.4 g/dl (14.0-18.0); Mean Corpuscular HGB Conc 31 g/dl (31-36); Mean Corpuscular Hemoglobin 28 pg (27-31); Mean Corpuscular Volume 90 fL (80-94); Mean Platelet Volume 7 um3 (7.4-10.4); Red Blood Count 3.74 10^6/ul (4.0-5.4); Red Cell Distribution Width 19 % (10.5-15); White Blood Count 25.6 10^3/ul (3.5-10.8)
[2017-02-03 20:30] LABS: Comments Flag Yes
[2017-02-03] MEDS: Dronabinol CAP* 2.5 MG PO SCH (20:52)
[2017-02-03] MEDS: Mometasone/Formoter 200/5 MDI INH SCH (21:54)
[2017-02-04 00:35] LABS: Troponin I 0.15 ng/mL (<0.04)
[2017-02-04] MEDS: Sodium Chloride TAB* 1 GM PO SCH ×2 (00:43→09:03)
[2017-02-04] MEDS: Morphine INJ* 10 MG/ML 1 ML SYRINGE IV PRN ×4 (00:47→11:10)
[2017-02-04] MEDS: NS 0.9% 1000 ML* 1,000 ML IV SCH (03:19)
[2017-02-04 05:02] LABS: BUN/Creatinine Ratio 33.8 (8-20); Calcium 8.8 mg/dL (8.6-10.3); EGFR African American 151.6 (>60); EGFR Non-African American 117.9 (>60); Globulin 2.9 g/dL (2-4); Potassium 4.6 mmol/L (3.5-5.0); Total Bilirubin 0.5 mg/dL (0.2-1.0); Total Protein 4.9 g/dL (6.4-8.9)
[2017-02-04] MEDS: Heparin VIAL(*) 5000 UNITS/ML VIAL (FIVE THOUSAND) SUBCUT SCH (05:05)
[2017-02-04] MEDS: Levothyroxine TAB* 50 MCG TAB PO SCH (05:06)
[2017-02-04] MEDS: Mometasone/Formoter 200/5 MDI INH SCH ×2 (07:35→19:56)
[2017-02-04] MEDS: Dronabinol CAP* 2.5 MG PO SCH (08:55)
--- NOTE | 2017-02-04 09:24 | PN ---
Progress Note - Progress Note SOAP: Subjective: clearly more confused this am, though able to identify me and that he is in the hospital. notes major complaint is shortness of breath. Objective: Vital Signs Temp Pulse Resp BP Pulse Ox 98.0 F 110 22 101/61 90 02/04/17 03:33 02/04/17 07:53 02/04/17 08:55 02/04/17 07:53 02/04/17 07:53 sitting up, uncomfortable appearing, confused cachectic distant hs dec bs soft nt +bs no le edema trace left hand edema port clean confused but grossly nonfocal Acetaminophen (Tylenol Tab*) 650 mg PO Q4H PRN PRN Reason: HEADACHE Heparin Sodium (Porcine) (Heparin Flush Port (Ivad)) 5 ml FLUSH DAILY AMBROSIO PRN Reason: Protocol Last Admin: 02/04/17 09:03 Dose: Not Given Levothyroxine Sodium (Synthroid Tab*) 50 mcg PO 0600 AMBROSIO Last Admin: 02/04/17 05:06 Dose: 50 mcg Lorazepam (Ativan Inj*) 1 mg IV PUSH Q2H PRN PRN Reason: ANXIETY Mometasone Furoate/Formoterol Fumar (Dulera 200/5 Mdi*) 2 puff INH BID AMBROSIO Last Admin: 02/04/17 07:35 Dose: 2 puff Morphine Sulfate (Morphine Oral Concentrate*) 5 mg PO Q2H PRN PRN Reason: PAIN Last Admin: 02/03/17 19:48 Dose: 5 mg Morphine Sulfate (Morphine Inj (Syringe)*) 5 mg IV Q2H PRN PRN Reason: PAIN Last Admin: 02/04/17 08:54 Dose: 5 mg Ondansetron HCl (Zofran Tab*) 4 mg PO Q4HR PRN PRN Reason: NAUSEA/VOMITING Ondansetron HCl (Zofran Inj*) 4 mg IV Q4H PRN PRN Reason: NAUSEA Assessment: 81 yo M w stage IV lung cancer, advanced COPD, and a nonpathologic T7 compression fracture presenting with worsening pain and SOB, unable to control at home. We had made a referral for home hospice but the son was unable to manage pending this. I discussed with Antolin Boyer at length that I am concerned that they will not be able to manage him at home. He will discuss with his brother (the power of employment attorney) and they will make a decision. Antolin did agree to comfort measures, as did his son. Plan: -comfort measures -change morphine and ativan to IV (per nursing hard to get him to take POs) -stop fluids -hospice consult
[2017-02-04] MEDS ORDERED: Morphine ORAL CONCENTRATE* 5 MG/0.25 ML ORAL.SYRIN PO PRN (09:49)
[2017-02-04] MEDS ORDERED: LORazepam TAB(*) 1 MG PO PRN (09:53)
[2017-02-04] MEDS: LORazepam INJ* 2 MG/ML 1 ML VIAL IV PUSH PRN (11:10)
--- NOTE | 2017-02-04 11:22 | CONS ---
PALLIATIVE CARE CONSULTATION REPORT: DATE OF CONSULT: 02/04/17 PRIMARY CARE PHYSICIAN: Bear Mckeon MD. REQUESTING PHYSICIAN FOR CONSULTATION: Karen Power NP. HOSPITAL COURSE: This is an 81-year-old male with the past medical history of non- small cell lung cancer and COPD, who was directly admitted from the oncology office on the with chest pain and back pain and worsening shortness of breath. There was concern about his poor performance status and decline in his quality of life and discussion with the oncologist and hospice was brought to him with his poor prognosis in the office. They were trying to manage him at home with p.o. morphine but became more weak and dizzy overnight and EMS was called and he was brought to the emergency room. The patient was found to be hypotensive and tachycardic. He improved with IV fentanyl and was admitted with IV fluids and pain control. His chest x-ray on admission shows interval progression of nodular pleural thickening present throughout the right hemithorax. Exploratory exam, small bibasilar infiltrates. A hospice consult was placed. On my encounter, patient is very dyspneic, limited interaction due to persistent coughing, dyspnea, and complaining of chest pain and back pain. I spoke with the son Antolin Pineda Junior, the healthcare proxy briefly who was very abrupt on the phone stating that he could not make any decision without his family and hung up and stated that his other family members may have been here on my encounter. There were no other family members at the bedside. Limited review of systems due to the patient's dyspnea and pain. PAST MEDICAL HISTORY: 1. Stage IV non-small cell lung cancer. 2. Severe end-stage COPD. 3. Nonpathologic T7 compression fracture. 4. History of bladder cancer in 2007. 5. BPH. 6. Hypothyroidism. 7. Peripheral vascular disease. PAST SURGICAL HISTORY: 1. Appendectomy. 2. Cataract removal. 3. Multiple basal cell carcinoma of the skin removal. 4. Bladder cancer, resection x2 in 2007. SOCIAL HISTORY: Per records Mr. Pineda is and retired and he quit smoking 29 years ago, drinks occasionally. His healthcare proxy is his son Antolin Pineda Junior, phone # [phone]. His MOLST form is a DNR/DNI. FAMILY HISTORY: Father with brain cancer, mother with Alzheimer's. REVIEW OF SYSTEMS: Limited due to the patient's dyspnea and pain. PHYSICAL EXAMINATION: Vital Signs: Temp 98, pulse rate 106, respiratory rate is 22, and oxygen saturation 90% on 5 L, blood pressure 101/61. General: Frail , elderly male in mild to moderate acute respiratory distress and pain. Neck: Supple. HEENT: Pupils, opacified right pupil, left is reactive. Conjunctivae are injected. Oropharynx, mucous membranes are dry. Head, normocephalic. Cardiac: Tachycardia. Systolic murmur heard throughout. Respiratory, coarse rhonchorous breath sounds. Bilateral wheezing and poor aeration with increased work of breathing. Abdomen: Soft, nontender, nondistended. Extremities: The patient with edema of his upper and lower extremities is noted 1+. Neurologic: Alert and oriented x2. Oriented to self and place. No gross neurologic deficits. LABORATORY DATA: White count 25.6, hemoglobin 10.4, hematocrit 34, platelets 305, INR is 1.08. Sodium is 133, potassium 4.6, chloride 99, bicarb 26, BUN 22, creatinine 0.65, troponin was 0.15 at admission, albumin was 2. ASSESSMENT: This is an 81-year-old male with a past medical history of stage IV non-small cell lung carcinoma and end-stage chronic obstructive pulmonary disease who was admitted for progression of his weakness, pain, and shortness of breath. On my encounter, the patient appears uncomfortable, in pain, and coughing with shortness of breath. We had a limited interaction due to his discomfort. I did try speaking with his healthcare proxy, his son who quickly hung up on me. I suspect that there is a sense of overwhelming feeling of everything that is going on. It appears that Antolin, the son was taking care of him at the patient's home and he was requiring his service every 2 hours, 24x7. The patient is eligible for hospice with a terminal diagnosis of stage IV non- small cell lung carcinoma and secondary diagnosis of chronic obstructive pulmonary disease. I am going to increase his morphine to 7.5 mg every hour as needed and add Ativan p.o. 2 mg every 2 hours as needed for anxiety. There are resident beds available, if they are interested in, which may be the case. I did not get an opportunity to discuss this as mentioned. precast worker to follow up with them to discuss this. The son was concerned that these places take all their money and this is not what the patient would want. I also put in to discontinue his IV fluids as well and I would titrate his oral morphine accordingly for his dyspnea and pain Thank you for this consultation, I will follow along with you. TIME SPENT: The patient time greater than 60 minutes was spent doing the consultation, more than half time was direct patient contact. CC: Bear Mckeon MD* [id number]/[facility] #: [id number] MTDD
[2017-02-04] MEDS: Morphine ORAL CONCENTRATE* 5 MG/0.25 ML ORAL.SYRIN PO PRN (22:08)
[2017-02-05] MEDS: Morphine ORAL CONCENTRATE* 5 MG/0.25 ML ORAL.SYRIN PO PRN ×6 (02:15→23:51)
[2017-02-05] MEDS: LORazepam INJ* 2 MG/ML 1 ML VIAL IV PUSH PRN (03:52)
[2017-02-05] MEDS: Levothyroxine TAB* 50 MCG TAB PO SCH (05:29)
[2017-02-05 06:31] LABS: BUN/Creatinine Ratio 38.3 (8-20); Calcium 9.4 mg/dL (8.6-10.3); EGFR African American 166.3 (>60); EGFR Non-African American 129.3 (>60); Globulin 2.9 g/dL (2-4); Potassium 4.8 mmol/L (3.5-5.0); Total Bilirubin 0.6 mg/dL (0.2-1.0); Total Protein 4.9 g/dL (6.4-8.9)
[2017-02-05 08:23] VITALS: BP 106/43
[2017-02-05] MEDS: Mometasone/Formoter 200/5 MDI INH SCH ×2 (08:24→20:38)
--- NOTE | 2017-02-05 15:16 | PN ---
Progress Note - Progress Note Note: Palliative care follow up note: Patient appears much more comfortable today. Denies wanting any pain medications. Son, Antolin at the bedside. Discussed transfer to Hospice residence tomorrow. Discussed with RN to use PO agents first as we would like to transition off the IV medications. No narcotics have been needed this shift.
[2017-02-06] MEDS: Morphine ORAL CONCENTRATE* 5 MG/0.25 ML ORAL.SYRIN PO PRN (01:36)
--- NOTE | 2017-02-06 05:04 | DS ---
DISCHARGE SUMMARY: DATE OF ADMISSION: 02/03/17 DATE OF PENDING DISCHARGE: 02/06/17 PRINCIPAL DIAGNOSES FOR ADMISSION: 1. Uncontrolled pain with lung cancer and shortness of breath, progression of disease, failure to t hrive, dyspnea, in for pain control and comfort measures. 2. Elevated troponin. 3. History of hyponatremia. 4. Hypothyroid. 5. Parapneumonic effusion. 6. Peripheral vascular disease. 7. Possible pneumonia. DISCHARGE MEDICATIONS: Will include: 1. Tylenol 650 mg every 4 to 6 hours as needed for comfort and fever. 2. Levothyroxine 50 mcg p.o. daily. 3. Morphine/Roxanol concentrate 20 mg/mL, 5 to 10 mg p.o. q.1 to 2 hours as needed for dyspnea or a ir hunger. 4. Lorazepam 2 mg every 2 hours as needed for anxiety, air hunger. HOSPITAL STAY: The patient was admitted via the emergency room with acute dyspnea and the aforement ioned failure to thrive with a history of lung cancer and progression of disease. He did have an el ectrocardiogram, which did show some sinus tachycardia with an elevated troponin with a maximum valu e of 0.15. In addition, he did have an elevated lactic acid level, felt to be hydrational, which di d correct nicely with IV fluids. The patient has been experiencing significant deconditioning and p oor performance status over the last few weeks and certainly is not a candidate for any active addit ional chemotherapy. An extensive discussion was done with the family and they had agreed to a consu ltation with the palliative care team and hospice and the family agreed that hospice was in his best interest at this point in time for his end-of-life care. He will ultimately be offered a bed with hospice residence and his end-of-life care will be over at the residence as the family was unable to take care for him at home and his pending discharge is for 02/06/17. The patient remained afebrile and comfortable during his hospital stay; however, his condition continues to decline fairly rapidl y. ALEXANDREA HILARIO [id number]/[facility] #: [id number]
[2017-02-06] MEDS: Mometasone/Formoter 200/5 MDI INH SCH (09:20)
--- NOTE | 2017-02-06 22:46 | DS ---
DISCHARGE SUMMARY:* ADDENDUM: The patient initially planned for discharge home to hospice residence on 02/06/17; however, the patient continued to decline overnight and subsequently passed on 02/06/17 at 6:15 a.m. The patient's family was notified with no concerns and states understanding. The patient's belongings were maintained with the patient. ALVA DENSON, KAMINI [id number]/[facility] #: [id number] MATILDE
== END 2017-02-06 06:15 | disposition expired | DRG 180 ==
LOC: ED 10:09 → MEDTELE 13:57 → MED 02-04 23:02
PROVIDERS: ADMIT Internal Medicine Hematology & Oncology; ATTEND Internal Medicine Hematology & Oncology
DX: C34.90 Malignant neoplasm of unspecified part of unspecified bronchus or lung (principal); J18.9 Pneumonia, unspecified organism; I95.9 Hypotension, unspecified; E86.0 Dehydration; J90 Pleural effusion, not elsewhere classified; M48.54XA Collapsed vertebra, not elsewhere classified, thoracic region, initial encounter for fracture; J44.9 Chronic obstructive pulmonary disease, unspecified; Z99.81 Dependence on supplemental oxygen; G89.3 Neoplasm related pain (acute) (chronic); R62.7 Adult failure to thrive; R74.8 Abnormal levels of other serum enzymes; E03.9 Hypothyroidism, unspecified; I73.9 Peripheral vascular disease, unspecified; N40.0 Benign prostatic hyperplasia without lower urinary tract symptoms; Z66 Do not resuscitate; Z85.51 Personal history of malignant neoplasm of bladder; Z79.891 Long term (current) use of opiate analgesic; Z79.899 Other long term (current) drug therapy; Z87.891 Personal history of nicotine dependence; Z80.8 Family history of malignant neoplasm of other organs or systems
CPT/HCPCS: A9270-GY; G0463; G8427; J1642; J1644; J2060; J2270; J3010